=== PATIENT | male | born 1950 | race Caucasian/White ===

== ENCOUNTER 2016-08-05 17:19 | Inpatient (IN) | payer OTHER ==
[2016-08-05 17:55] VITALS: BMI 30.9
[2016-08-05] MEDS ORDERED: VANCOMYCIN 1,000 MG in DEXTROSE 5%-WATER - 250 ML IVPB ONE (18:33)
[2016-08-05] MEDS ORDERED: PIPERACILLIN/TAZOB 3.375 GM/50 ML PRE-DOCKED IVPB ONE (18:33)
[2016-08-05 19:02] LABS: BASOPHIL 0.5 % (0-2.0); EOSINOPHIL 0.7 % (0-4.5); MCH 31.9 pg (25.7-33.7); MCHC 33.8 g/dl (32.0-35.9); MEAN CELL VOLUME 94.6 fl (80-96); MEAN PLT VOLUME 9.5 fl (7.5-11.1); NEUTROPHILS 82.9 % (42.8-82.8); PLATELET COUNT 363 K/MM3 (134-434); RDW 13.4 % (11.9-15.9); WHITE BLOOD COUNT 18.9 K/mm3 (4.0-10.0)
[2016-08-05 19:26] LABS: ALBUMIN 2.9 g/dl (3.4-5.0); BILIRUBIN,TOTAL 0.8 mg/dL (0.2-1.0); CALCIUM 8.7 mg/dL (8.5-10.1); COCKROFT - GAULT 79.31; CREATININE 1.4 mg/dL (0.7-1.3)
[2016-08-05 19:29] LABS: INR 1.14 (0.82-1.09); PROTHROMBIN TIME (PATIENT) 12.6 SEC (9.98-11.88)
[2016-08-05 19:32] LABS: ACTIVATED PTT 30.4 SECONDS (26.9-34.4)
--- NOTE | 2016-08-05 19:33 | PDOC ---
History of Present Illness - General History Source: Patient Exam Limitations: No Limitations <Paul Garcia - Last Filed: 08/05/16 20:14> - General History Source: Patient, Spouse Exam Limitations: No Limitations - History of Present Illness Initial Comments: 08/05/16 20:27 The patient is a 65 year old male, with a significant past medical history of hypertension, hyperlipidemia, diabetes, coronary artery disease s/p stents and glaucoma, who presents to the emergency department sent in by Dr. Randy Faith with a worsening infection of the right great toe for the past week. The patient reports that one week ago, he noticed a small blister and an area of surrounding erythema to the right great toe which has spread to the dorsum of the right foot in the past 2 days. The patient made an appointment and was seen by his structural steel worker who took an x-ray of his right foot and referred him to Dr. Faith, who then referred him to the ED for evaluation and likely admission for IV antibiotics. The patient denies fever or chills. The patients is at the bedside. Allergies: None reported. Past Surgical History: Appendectomy, Stents. Social History: Non smoker. Denies alcohol or drug use. <Matilda Irene - Last Filed: 08/05/16 21:07> - General Chief Complaint: Wound Infection Stated Complaint: INFECTED WOUND Time Seen by Provider: 08/05/16 18:09 Past History - Past Medical History Cardiac Disorders: Yes Diabetes: Yes HTN: Yes Hypercholesterolemia: Yes Other medical history: glaucome - Surgical History Appendectomy: Yes - Psycho/Social/Smoking Cessation Hx Suicidal Ideation: No Smoking History: Never smoked <Paul Garcia - Last Filed: 08/05/16 20:14> <Matilda Irene - Last Filed: 08/05/16 21:07> - Past Medical History Allergies/Adverse Reactions: Allergies Allergy/AdvReac Type Severity Reaction Status Date / Time No Known Allergies Allergy Verified 08/05/16 17:53 Review of Systems - Review of Systems Able to Perform ROS?: Yes Comments:: 08/05/16 20:06 GENERAL/CONSTITUTIONAL: No fever or chills. No weakness. HEAD, EYES, EARS, NOSE AND THROAT: No change in vision. No ear pain or discharge. No sore throat. CARDIOVASCULAR: No chest pain or shortness of breath. RESPIRATORY: No cough, wheezing, or hemoptysis. GASTROINTESTINAL: No nausea, vomiting, diarrhea or constipation. GENITOURINARY: No dysuria, frequency, or change in urination. MUSCULOSKELETAL: No joint or muscle swelling or pain. No neck or back pain. SKIN: +Wound to the right great toe. NEUROLOGIC: No headache, vertigo, loss of consciousness, or change in strength/ sensation. ENDOCRINE: No increased thirst. No abnormal weight change. HEMATOLOGIC/LYMPHATIC: No anemia, easy bleeding, or history of blood clots. ALLERGIC/IMMUNOLOGIC: No hives or skin allergy. <Matilda Irene - Last Filed: 08/05/16 21:07> *Physical Exam - Vital Signs Last Vital Signs Temp Pulse Resp BP Pulse Ox 98.2 F 101 H 19 130/81 97 08/05/16 17:53 08/05/16 17:53 08/05/16 17:53 08/05/16 17:53 08/05/16 17:53 <Paul Garcia - Last Filed: 08/05/16 20:14> - Vital Signs Last Vital Signs Temp Pulse Resp BP Pulse Ox 98.2 F 101 H 19 130/81 97 08/05/16 17:53 08/05/16 17:53 08/05/16 17:53 08/05/16 17:53 08/05/16 17:53 - Physical Exam Comments: 08/05/16 20:17 GENERAL: Awake, alert, and fully oriented, in no acute distress. HEAD: No signs of trauma. EYES: PERRLA, EOMI, sclera anicteric, conjunctiva clear. ENT: Auricles normal inspection, hearing grossly normal, nares patent, oropharynx clear without exudates. Moist mucosa. NECK: Normal ROM, supple, no lymphadenopathy, JVD, or masses. LUNGS: Breath sounds equal, clear to auscultation bilaterally. No wheezes, and no crackles. HEART: Regular rate and rhythm, normal S1 and S2, no murmurs, rubs or gallops. ABDOMEN: Soft, nontender, normoactive bowel sounds. No guarding, no rebound. No masses. EXTREMITIES: Normal range of motion, no edema. No clubbing or cyanosis. No cords , erythema, or tenderness. NEUROLOGICAL: Cranial nerves II through XII intact. Normal speech, normal gait. SKIN: Palpable 2+ DP pulse. Great toe of the right foot is erythematous with a 2 x 2 cm ulcer with drainage. Erythema extends to assisted to the dorsum of the right foot. <Matilda Irene - Last Filed: 08/05/16 21:07> Heart Score/ECG Review #1 ECG reviewed & interpreted by me at: 19:00 08/05/16 19:36 NSR 92, TWI III, T wave flat avF, nostd/bucky, QTC 437 msec <Paul Garcia - Last Filed: 08/05/16 20:14> ED Treatment Course - LABORATORY CBC & Chemistry Diagram: 08/05/16 18:39 08/05/16 18:39 - ADDITIONAL ORDERS Additional order review: Laboratory Results 08/05/16 08/05/16 18:39 18:39 Sodium 134 L Potassium 3.6 Chloride 96 L Carbon Dioxide 24 Anion Gap 14 BUN 16 Creatinine 1.4 H Creat Clearance w eGFR 50.86 Random Glucose 300 H Lactic Acid 1.569 Calcium 8.7 Total Bilirubin 0.8 AST 30 ALT 24 Alkaline Phosphatase 115 Total Protein 7.0 Albumin 2.9 L 08/05/16 18:39 RBC 3.90 L MCV 94.6 MCHC 33.8 RDW 13.4 MPV 9.5 Neutrophils % 82.9 H Lymphocytes % 7.2 L Monocytes % 8.7 Eosinophils % 0.7 Basophils % 0.5 - RADIOLOGY Radiology Studies Ordered: Category Date Time Status CHEST X-RAY PORTABLE* [RAD] Stat Radiology 08/05/16 18:32 Ordered <Paul Garcia - Last Filed: 08/05/16 20:14> - LABORATORY CBC & Chemistry Diagram: 08/05/16 18:39 08/05/16 18:39 - ADDITIONAL ORDERS Additional order review: Laboratory Results 08/05/16 08/05/16 18:39 18:39 Sodium 134 L Potassium 3.6 Chloride 96 L Carbon Dioxide 24 Anion Gap 14 BUN 16 Creatinine 1.4 H Creat Clearance w eGFR 50.86 Random Glucose 300 H Lactic Acid 1.569 Calcium 8.7 Total Bilirubin 0.8 AST 30 ALT 24 Alkaline Phosphatase 115 Total Protein 7.0 Albumin 2.9 L 08/05/16 18:39 RBC 3.90 L MCV 94.6 MCHC 33.8 RDW 13.4 MPV 9.5 Neutrophils % 82.9 H Lymphocytes % 7.2 L Monocytes % 8.7 Eosinophils % 0.7 Basophils % 0.5 - Medications Given in the ED: ED Medications Discontinued Medications Generic Name Dose Route Start Last Admin Trade Name Freq PRN Reason Stop Dose Admin Piperacillin Sod/Tazobactam Sod 3.375 gm 08/05/16 18:33 08/05/16 19:43 Zosyn 3.375gm Ivpb (Pre-Docked) IVPB 08/05/16 18:34 3.375 gm ONCE ONE Administration Protocol <Matilda Irene - Last Filed: 08/05/16 21:07> Medical Decision Making - Medical Decision Making 08/05/16 19:30 A portion of this note was documented by scribe services under my direction. I have reviewed the details of the note, within reason, and agree with the documentation with the following case summary and management plan written by me. Patient treated in the ED. Nursing notes are reviewed and incorporated into the medical decision-making. Vital signs reviewed. Peripheral IV access obtained by the nurse, laboratory studies are drawn and sent, reviewed and interpreted by myself. Vital Signs Temp Pulse Resp BP Pulse Ox 98.2 F 101 H 19 130/81 97 08/05/16 17:53 08/05/16 17:53 08/05/16 17:53 08/05/16 17:53 08/05/16 17:53 65-year-old male with past medical history of hypertension, diabetes, hyperlipidemia, coronary disease status post stents, glaucoma sent in by vascular surgeon Dr. Faith for first toe right infection. Patient reported about a week ago, she noticed a small erythema along the second right digit that extended to her first toe. Reports that the symptoms worsened last 2 days and now extending to the dorsum the right foot. Denies fevers. He saw his structural steel worker referred him to the vascular surgeon. After seeing the vascular surgeon, patient was sent to the ER for further evaluation. He reports that he had an x-ray performed at the structural steel worker's office of his right toe. We'll need to rule out osteomyelitits. Vancomycin and Zosyn initiated. Patient at the very minimum has cellulitis. We'll admit the patient to hospital for further management. 08/05/16 20:14 CBC, BMP 08/05/16 18:39 08/05/16 18:39 CMP Sodium 134 mmol/L (136-145) L 08/05/16 18:39 Potassium 3.6 mmol/L (3.5-5.1) 08/05/16 18:39 Chloride 96 mmol/L (98-107) L 08/05/16 18:39 Carbon Dioxide 24 mmol/L (21-32) 08/05/16 18:39 Anion Gap 14 (8-16) 08/05/16 18:39 BUN 16 mg/dL (7-18) 08/05/16 18:39 Creatinine 1.4 mg/dL (0.7-1.3) H 08/05/16 18:39 Creat Clearance w eGFR 50.86 (>60) 08/05/16 18:39 Random Glucose 300 mg/dL (74-106) H 08/05/16 18:39 Lactic Acid 1.569 mmol/L (0.4-2.0) 08/05/16 18:39 Calcium 8.7 mg/dL (8.5-10.1) 08/05/16 18:39 Total Bilirubin 0.8 mg/dL (0.2-1.0) 08/05/16 18:39 AST 30 U/L (15-37) 08/05/16 18:39 ALT 24 U/L (12-78) 08/05/16 18:39 Alkaline Phosphatase 115 U/L (45-117) 08/05/16 18:39 C-Reactive Protein 26.6 MG/DL (0.00-0.3) H 08/05/16 18:39 Total Protein 7.0 g/dl (6.4-8.2) 08/05/16 18:39 Albumin 2.9 g/dl (3.4-5.0) L 08/05/16 18:39 Patient to be admitted to [facility]. Case discussed in detail with admitting physician including history, physical exam and ancillary studies. Admitting physician has assumed care for the patient, will follow all pending diagnostics and will complete the evaluation and treatment. <Paul Garcia - Last Filed: 08/05/16 20:14> - Medical Decision Making 08/05/16 20:30 EXAM: RAD/CHEST X-RAY PORTABLE Reviewed By: Dr. Marine Serna IMPRESSION: No acute cardiopulmonary disease is present. <Matilda Irene - Last Filed: 08/05/16 21:07> *DC/Admit/Observation/Transfer - Discharge Dispostion Admit: Yes <Paul Garcia - Last Filed: 08/05/16 20:14> - Attestations Scribe Attestion: 08/05/16 19:53 Documentation prepared by Matilda Irene, acting as medical charge entry specialist for Paul Garcia MD. <Matilda Irene - Last Filed: 08/05/16 21:07> Diagnosis at time of Disposition: Cellulitis Qualifiers: Site of cellulitis: extremity Site of cellulitis of extremity: lower extremity Laterality: right Qualified Code(s): L03.115 - Cellulitis of right lower limb
[2016-08-05] MEDS ORDERED: PIPERACILLIN/TAZOB 4.5 GM 100 ML IVPB ONE (19:34)
[2016-08-05] MEDS ORDERED: VANCOMYCIN 1 GRAM (PRE-DOCKED) 250 ML IVPB ONE (19:35)
[2016-08-05] MEDS ORDERED: ONDANSETRON 4 MG/2 ML VIAL IVPB PRN (19:35)
--- NOTE | 2016-08-05 19:38 | HP ---
[id number] HISTORY OF PRESENT ILLNESS: 65 year old male that presents to the ED sent in by vascular surgeon Dr. Faith for right first toe infection. Patient reported about 1 week ago, he noticed a blister along the second right digit that extended to his first toe. Reports that the symptoms worsened last 2 days and now extending to the dorsum the right foot. He reports foul smell from the wound on the right great toe as well as numbness, erythema and swelling. He denies fever or chills. ER course was notable for: (1) Vanco/Zosyn Recent Travel: none PAST MEDICAL HISTORY: hypertension, diabetes type 2 (diet controlled), hyperlipidemia, CAD s/p stent, glaucoma PAST SURGICAL HISTORY: Appendectomy, Stents, tonsillectomy, right ankle orif Social History: Smoking: none Alcohol: none Drugs: none Family History: non contributory Allergies No Known Allergies Allergy (Verified 08/05/16 17:53) HOME MEDICATIONS: REVIEW OF SYSTEMS CONSTITUTIONAL: Absent: fever, chills, diaphoresis, generalized weakness, malaise, loss of appetite, weight change HEENT: Absent: rhinorrhea, nasal congestion, throat pain, throat swelling, difficulty swallowing, mouth swelling, ear pain, eye pain, visual changes CARDIOVASCULAR: Absent: chest pain, syncope, palpitations, irregular heart rate, lightheadedness , peripheral edema RESPIRATORY: Absent: cough, shortness of breath, dyspnea with exertion, orthopnea, wheezing, stridor, hemoptysis GASTROINTESTINAL: Absent: abdominal pain, abdominal distension, nausea, vomiting, diarrhea, constipation, melena, hematochezia GENITOURINARY: Absent: dysuria, frequency, urgency, hesitancy, hematuria, flank pain, genital pain MUSCULOSKELETAL: Absent: myalgia, arthralgia, joint swelling, back pain, neck pain SKIN: Present: right great first toe wound Absent: rash, itching, pallor HEMATOLOGIC/IMMUNOLOGIC: Absent: easy bleeding, easy bruising, lymphadenopathy, frequent infections ENDOCRINE: Absent: unexplained weight gain, unexplained weight loss, heat intolerance, cold intolerance NEUROLOGIC: Absent: headache, focal weakness or paresthesias, dizziness, unsteady gait, seizure, mental status changes, bladder or bowel incontinence PSYCHIATRIC: Absent: anxiety, depression, suicidal or homicidal ideation, hallucinations. PHYSICAL EXAMINATION Vital Signs - 24 hr 08/05/16 17:53 Temperature 98.2 F Pulse Rate 101 H Respiratory 19 Rate Blood Pressure 130/81 O2 Sat by Pulse 97 Oximetry (%) GENERAL: Awake, alert, and fully oriented, in no acute distress. HEAD: Normal with no signs of trauma. EYES: Pupils equal, round and reactive to light, +right eye strabismus, sclera anicteric, conjunctiva clear. No lid lag. EARS, NOSE, THROAT: Ears normal, nares patent, oropharynx clear without exudates. Moist mucous membranes. NECK: Normal range of motion, supple without lymphadenopathy, JVD, or masses. LUNGS: Breath sounds equal, clear to auscultation bilaterally. No wheezes, and no crackles. No accessory muscle use. HEART: Regular rate and rhythm, normal S1 and S2 without murmur, rub or gallop. ABDOMEN: Soft, nontender, not distended, normoactive bowel sounds, no guarding, no rebound, no masses. No hepatomegaly or splenomegaly. MUSCULOSKELETAL: Normal range of motion at all joints. No bony deformities or tenderness. No CVA tenderness. UPPER EXTREMITIES: 2+ pulses, warm, well-perfused. No cyanosis. No clubbing. No peripheral edema. LOWER EXTREMITIES: +right forefoot warm, erythematous, foul smelling with wound on first toe with necrotic tissue and interdigit serous drainage between first and second toe. 2+ pulses, warm, well-perfused. +discrimination on posterior aspect of first toe and edema. No calf tenderness. NEUROLOGICAL: Cranial nerves II-XII intact. Normal speech. PSYCHIATRIC: Cooperative. Good eye contact. Appropriate mood and affect. SKIN: Warm, dry, normal turgor, normal capillary refill. Laboratory Results - last 24 hr 08/05/16 08/05/16 08/05/16 18:39 18:39 18:39 WBC 18.9 H RBC 3.90 L Hgb 12.5 Hct 36.9 MCV 94.6 MCHC 33.8 RDW 13.4 Plt Count 363 MPV 9.5 Neutrophils % 82.9 H Lymphocytes % 7.2 L Monocytes % 8.7 Eosinophils % 0.7 Basophils % 0.5 ESR INR 1.14 PTT (Actin FS) 30.4 Sodium 134 L Potassium 3.6 Chloride 96 L Carbon Dioxide 24 Anion Gap 14 BUN 16 Creatinine 1.4 H Creat Clearance w eGFR 50.86 Random Glucose 300 H Lactic Acid Calcium 8.7 Total Bilirubin 0.8 AST 30 ALT 24 Alkaline Phosphatase 115 C-Reactive Protein Total Protein 7.0 Albumin 2.9 L Blood Type Antibody Screen 08/05/16 08/05/16 08/05/16 18:39 18:39 18:39 WBC RBC Hgb Hct MCV MCHC RDW Plt Count MPV Neutrophils % Lymphocytes % Monocytes % Eosinophils % Basophils % ESR INR PTT (Actin FS) Sodium Potassium Chloride Carbon Dioxide Anion Gap BUN Creatinine Creat Clearance w eGFR Random Glucose Lactic Acid 1.569 Calcium Total Bilirubin AST ALT Alkaline Phosphatase C-Reactive Protein 26.6 H Total Protein Albumin Blood Type B POSITIVE Antibody Screen Negative 08/05/16 18:56 WBC RBC Hgb Hct MCV MCHC RDW Plt Count MPV Neutrophils % Lymphocytes % Monocytes % Eosinophils % Basophils % ESR 127 H INR PTT (Actin FS) Sodium Potassium Chloride Carbon Dioxide Anion Gap BUN Creatinine Creat Clearance w eGFR Random Glucose Lactic Acid Calcium Total Bilirubin AST ALT Alkaline Phosphatase C-Reactive Protein Total Protein Albumin Blood Type Antibody Screen ASSESSMENT/PLAN: 65 year old male being admitted for sepsis secondary to acute cellulitis r/o osteomyelitis. -Vanco/zosyn IV -MRI of the right foot -Podiatry consult in AM Diabetes -RISS -Hgb A1C BART vs. BART on CKD -IVF -Reevaluate BMP in AM DVT ppx -Heparin 5000 units subQ TID Documentation prepared by LUIS CARLOS Ramirez, acting as emergency medical services coordinator for Patti Rees MD, MD. <Patti Rees - Last Filed: 08/19/16 20:43> Visit type - Emergency Visit Emergency Visit: Yes ED Registration Date: 08/05/16 Care time: The patient presented to the Emergency Department on the above date and was hospitalized for further evaluation of their emergent condition. - New Patient This patient is new to me today: Yes Date on this admission: 08/19/16 - Critical Care Critical Care patient: No
[2016-08-05] MEDS ORDERED: PIPERACILLIN/TAZOB 3.375 GM 50 ML IVPB ONE (19:47)
[2016-08-05] MEDS: SODIUM CHLORIDE 1,000 ML IV SCH (19:53)
[2016-08-05 22:28] LABS: URINE APPEARANCE CLOUDY; URINE BILIRUBIN NEGATIVE (NEGATIVE); URINE BLOOD NEGATIVE (NEGATIVE); URINE COLOR DKYELLOW; URINE GLUCOSE (UA) 3+ (NEGATIVE); URINE KETONE TRACE (NEGATIVE); URINE LEUK ESTERASE NEGATIVE (NEGATIVE); URINE NITRITE NEGATIVE (NEGATIVE); URINE PROTEIN NEGATIVE (NEGATIVE); URINE UROBILINOGEN NEGATIVE E.U./dl (0.2-1.0)
[2016-08-05] MEDS ORDERED: HEMOQUE TEST 1 EACH EACH ONE (22:43)
[2016-08-06] MEDS ORDERED: HEPARIN NA (PORCINE) 5,000 UNITS/ML 1ML VIAL ONE (02:23)
[2016-08-06] MEDS: HEPARIN NA (PORCINE) 5,000 UNITS/ML 1ML VIAL SQ SCH ×3 (02:28→21:34)
[2016-08-06] MEDS ORDERED: INSULIN REGULAR HUMAN 100 UNITS/ML *VIAL IVPUSH ONE (02:57)
[2016-08-06] MEDS ORDERED: SODIUM CHLORIDE 0.9% 1000 ML INFUS.BAG IV ONE (02:58)
[2016-08-06] MEDS ORDERED: INSULIN REGULAR HUMAN 100 UNITS/ML *VIAL ONE (03:01)
[2016-08-06] MEDS: SODIUM CHLORIDE 1,000 ML IV SCH ×3 (04:26→17:26)
[2016-08-06] MEDS: INSULIN SLIDING SCALE (NOVOLOG) 1 VIAL SQ SCH ×4 (06:53→21:34)
[2016-08-06 08:33] LABS: MCH 31.8 pg (25.7-33.7); MCHC 33.3 g/dl (32.0-35.9); MEAN CELL VOLUME 95.7 fl (80-96); MEAN PLT VOLUME 9.1 fl (7.5-11.1); PLATELET COUNT 301 K/MM3 (134-434); RDW 13.3 % (11.9-15.9); WHITE BLOOD COUNT 14.8 K/mm3 (4.0-10.0)
[2016-08-06 09:09] LABS: ALBUMIN 2.5 g/dl (3.4-5.0); CALCIUM 8.4 mg/dL (8.5-10.1)
[2016-08-06 09:12] LABS: BILIRUBIN,TOTAL 0.7 mg/dL (0.2-1.0); COCKROFT - GAULT 79.2; CREATININE 1.4 mg/dL (0.7-1.3); TOT PROT 5.9 g/dl (6.4-8.2)
--- NOTE | 2016-08-06 15:40 | PN ---
Progress Note (short form) - Note Progress Note: states pain in his foot has improved, has occasional pain but not related to movement. states it started off as blister which he tried to keep clean with hydrogen peroixde but went to the doctor when he notice the infection spreading to the lateral edge of the toe. denies inserting any foreign object into the foot or trauma to the foot. denies CP, SOB,fever, chills, N/V/C/D Current Medications Generic Name Dose Route Start Last Admin Trade Name Freq PRN Reason Stop Dose Admin Heparin Sodium (Porcine) 5,000 unit 08/06/16 02:00 08/06/16 09:12 Heparin - SQ 5,000 unit Q8H-IV RONALDO Administration Sodium Chloride 1,000 mls @ 125 mls/hr 08/05/16 19:45 08/06/16 12:38 Normal Saline - IV 125 mls/hr ASDIR RONALDO Administration Insulin Aspart 1 vial 08/06/16 07:00 08/06/16 11:59 Novolog Vial Sliding Scale - SQ 6 units ACHS RONALDO Administration Protocol Ondansetron HCl 4 mg 08/05/16 19:35 Zofran Injection IVPB Q6H PRN NAUSEA Last Vital Signs Temp Pulse Resp BP Pulse Ox 98.6 F 87 18 136/79 95 08/06/16 12:31 08/06/16 12:31 08/06/16 12:31 08/06/16 12:31 08/06/16 09:00 General NAd CV S1 S2 + Lungs CTA B/L no wheezing/rales/rhonchi Abdomen soft NT/ND obese Extremities RLE erythema on dorsum to midfoot, medial aspect of 1st digit of R foot with probe to bone. lateral aspect pf 1st digit with blister draining pus. pedal pulse 1+ CBCD WBC 14.8 K/mm3 (4.0-10.0) H 08/06/16 07:30 RBC 3.44 M/mm3 (4.00-5.60) L 08/06/16 07:30 Hgb 11.0 GM/dL (11.7-16.9) L D 08/06/16 07:30 Hct 32.9 % (35.4-49) L 08/06/16 07:30 MCV 95.7 fl (80-96) 08/06/16 07:30 MCHC 33.3 g/dl (32.0-35.9) 08/06/16 07:30 RDW 13.3 % (11.9-15.9) 08/06/16 07:30 Plt Count 301 K/MM3 (134-434) 08/06/16 07:30 MPV 9.1 fl (7.5-11.1) 08/06/16 07:30 CMP Sodium 137 mmol/L (136-145) 08/06/16 07:30 Potassium 4.0 mmol/L (3.5-5.1) 08/06/16 07:30 Chloride 99 mmol/L (98-107) 08/06/16 07:30 Carbon Dioxide 28 mmol/L (21-32) 08/06/16 07:30 Anion Gap 10 (8-16) 08/06/16 07:30 BUN 21 mg/dL (7-18) H D 08/06/16 07:30 Creatinine 1.4 mg/dL (0.7-1.3) H 08/06/16 07:30 Creat Clearance w eGFR 50.86 (>60) 08/06/16 07:30 Calcium 8.4 mg/dL (8.5-10.1) L 08/06/16 07:30 Total Bilirubin 0.7 mg/dL (0.2-1.0) 08/06/16 07:30 AST 21 U/L (15-37) D 08/06/16 07:30 ALT 18 U/L (12-78) D 08/06/16 07:30 Alkaline Phosphatase 94 U/L (45-117) 08/06/16 07:30 Total Protein 5.9 g/dl (6.4-8.2) L 08/06/16 07:30 Albumin 2.5 g/dl (3.4-5.0) L 08/06/16 07:30 A/P 65yo m with PMH CAD s/p stent, DM, HTN and dyslipidemia presented to the ER and was admitted for further evaluation of their emergent condition 1. R toe diabetic ulcer- concern for OM. MRI foot pending. as per pt had XR in PMD office and was told there was bone involvement. ESR/CRP elevated. received Vanco/Zosyn in the ER. give vanco x1g now. will consult ID to continue vanco empirically (will need to be dosed to level, none obtained today) and will need to add GN coverage. podiatry consulted for possible amputation. pain control. hold asa/plavix for possible surgery 2. DM- uncontrolled. does not take medications at home. A1c 10.9. will start levemir 10 units tonight, ISS, BGM 3. BART- unknown baseline. obtain from PMD. IVF. hold acei. avoid nephrotoxic 4. CAD s/p stent- will re-start metoprolol at decreased rate, hold asa/plavix for pending surgery 5. dyslipidemia- cont statin 6. DVT ppx- hep sq Visit type - Emergency Visit Emergency Visit: Yes ED Registration Date: 08/05/16 Care time: The patient presented to the Emergency Department on the above date and was hospitalized for further evaluation of their emergent condition. - New Patient This patient is new to me today: Yes Date on this admission: 08/06/16 - Critical Care Critical Care patient: No - Discharge Referral Referred to [facility] Med P.C.: No
--- NOTE | 2016-08-06 15:52 | PN ---
Progress Note (short form) - Note Progress Note: Vascular Surgery Pt seen and examined. Dressing changed. Going down for MRI Right great toe with cellulitis. Started as blister two weeks ago. Now with ulcer with draining pus. Palpable DP and PT pulses. Will need drainage, possible amputation as per podiatry. Cleared from vascular stand point. Randy Faith DO
--- NOTE | 2016-08-06 16:20 | EKG ---
Test Reason : Blood Pressure : / mmHG Vent. Rate : 092 BPM Atrial Rate : 092 BPM P-R Int : 000 ms QRS Dur : 088 ms QT Int : 354 ms P-R-T Axes : 000 007 017 degrees QTc Int : 437 ms SINUS RHYTHM WITH MARKED SINUS ARRHYTHMIA OTHERWISE NORMAL ECG WHEN COMPARED WITH ECG OF 26-JAN-2010 10:30, NO SIGNIFICANT CHANGE WAS FOUND Confirmed by VINAYAK JOHNSON MD ([id number]) on 08/06/2016 4:20:13 PM Referred By: Confirmed By:VINAYAK JOHNSON MD
[2016-08-06] MEDS: METOPROLOL TARTRATE 50 MG TABLET (FP) PO SCH (21:34)
[2016-08-06] MEDS: ATORVASTATIN CA 10 MG TABLET (FP) PO SCH (21:34)
[2016-08-06] MEDS ORDERED: INSULIN DETEMIR 100 UNITS/ML MDV SQ SCH (22:00)
[2016-08-07] MEDS: SODIUM CHLORIDE 1,000 ML IV SCH ×2 (00:21→10:45)
[2016-08-07] MEDS: HEPARIN NA (PORCINE) 5,000 UNITS/ML 1ML VIAL SQ SCH ×3 (05:07→22:36)
[2016-08-07] MEDS: INSULIN SLIDING SCALE (NOVOLOG) 1 VIAL SQ SCH ×4 (06:21→22:41)
[2016-08-07 08:51] LABS: BASOPHIL 0.5 % (0-2.0); MCH 32.5 pg (25.7-33.7); MCHC 33.8 g/dl (32.0-35.9); MEAN CELL VOLUME 96.1 fl (80-96); MEAN PLT VOLUME 9.3 fl (7.5-11.1); NEUTROPHILS 80.9 % (42.8-82.8); PLATELET COUNT 338 K/MM3 (134-434); RDW 13.2 % (11.9-15.9); WHITE BLOOD COUNT 11.4 K/mm3 (4.0-10.0)
[2016-08-07] MEDS: METOPROLOL TARTRATE 50 MG TABLET (FP) PO SCH ×3 (08:52→22:36)
[2016-08-07 09:07] LABS: COCKROFT - GAULT 100.81; CREATININE 1.1 mg/dL (0.7-1.3)
[2016-08-07] MEDS ORDERED: PIPERACILLIN/TAZOB 3.375 GM 3.375 GM in DEXTROSE 5%-WATER - 50 ML IVPB SCH (11:00)
--- NOTE | 2016-08-07 11:06 | CONSULT ---
Consult - text type - Consultation Consultation Note: Podiatry Consultation: 65 year old poorly controlled DM M presents to ED with redness/swelling/foul smelling wound to R great toe since 08/05. Patient states that the it started as a blister that he was tending to on his own. The blister erupted a few days ago and noticed foul smell so he presented to a private manager stylist. Xrays were taken in his office and he recommended presenting to ED. He denies F/V/N/C/SOB/ CP at home. Patient never received xray in ED, was sent upstairs for admission and received MRI prior to my consultation. Patient was seen by vascular sx and was cleared from vascular standpoint, recommended my consultation. PMHx: poorly controlled IDDM, HTN, CAD s/p stent, HLP Meds: noted in chart ALL: NKMA PSHx: CAD s/p stent KIRAN: R foot: pedal pulses palpable, TG warm-warmer R foot, CFT delayed R great toe. There is a large purulent, malodorous wound medial aspect of great toe. There is a secondary wound lateral aspect of IPJ of hallux. There is purulent drainage from secondary wound. There is surrounding erythema to the level of the 1st MTPJ. There is fluctuance noted. There is no soft tissue crepitus. There is moderate tenderness to palpation. WBC: 11.4, decreasing Blood Cx: negative x 24 hrs R foot XR: never performed R foot MRI: acute osteomyelitis proximal and distal phalanges Imp: 65 year old DM M with R foot DFI and osteomyelitis 1. IV abx! 2. Bedside incision and drainage performed to decompress locally using #11 blade scalpel. Patient tolerated the procedure well, purulent drainage expressed from wound bed. 3. Clinically has acute localized infection to the R great toe. Will need debridement/lavage with great toe amputation tomorrow. NPO at midnight. 4. Will monitor improvement in infection post-surgically. Will follow closely. 5. Thanks for the courtesy of the consult. Brennan Thrasher DPM
[2016-08-07] MEDS ORDERED: PIPERACILLIN/TAZOB 3.375 GM 50 ML IVPB SCH (11:30)
[2016-08-07] MEDS: PIPERACILLIN/TAZOB 3.375 GM 50 ML IVPB SCH ×2 (12:00→17:59)
--- NOTE | 2016-08-07 13:22 | PN ---
Progress Note (short form) - Note Progress Note: states pain in his foot has improved, has occasional pain but not related to movement. states it started off as blister which he tried to keep clean with hydrogen peroixde but went to the doctor when he notice the infection spreading to the lateral edge of the toe. denies inserting any foreign object into the foot or trauma to the foot. denies CP, SOB,fever, chills, N/V/C/D Current Medications Generic Name Dose Route Start Last Admin Trade Name Freq PRN Reason Stop Dose Admin Atorvastatin Calcium 10 mg 08/06/16 22:00 08/06/16 21:34 Lipitor - PO 10 mg HS RONALDO Administration Heparin Sodium (Porcine) 5,000 unit 08/06/16 22:00 08/07/16 05:07 Heparin - SQ Not Given TID RONALDO Sodium Chloride 1,000 mls @ 100 mls/hr 08/06/16 15:48 08/07/16 10:45 Normal Saline - IV 100 mls/hr ASDIR RONALDO Administration Piperacillin Sod/Tazobactam Sod 50 mls @ 100 mls/hr 08/07/16 11:45 08/07/16 12: 00 Zosyn 3.375gm Ivpb (Pre-Docked) IVPB 100 mls/hr Q8H-IV RONALDO Administration Protocol Insulin Aspart 1 vial 08/06/16 07:00 08/07/16 12:07 Novolog Vial Sliding Scale - SQ 2 units ACHS RONALDO Administration Protocol Insulin Detemir 10 units 08/06/16 22:00 Levemir Vial SQ HS RONALDO Metoprolol Tartrate 50 mg 08/06/16 22:00 08/07/16 09:25 Lopressor - PO 50 mg BID RONALDO Administration Ondansetron HCl 4 mg 08/05/16 19:35 Zofran Injection IVPB Q6H PRN NAUSEA Last Vital Signs Temp Pulse Resp BP Pulse Ox 98.8 F 96 H 18 145/81 96 08/07/16 09:00 08/07/16 09:00 08/07/16 09:00 08/07/16 09:00 08/07/16 09:00 General NAd CV S1 S2 + Lungs CTA B/L no wheezing/rales/rhonchi Abdomen soft NT/ND obese Extremities RLE erythema on dorsum to midfoot, medial aspect of 1st digit of R foot with probe to bone. lateral aspect pf 1st digit with blister draining pus. pedal pulse 1+ A/P 65yo m with PMH CAD s/p stent, DM, HTN and dyslipidemia presented to the ER and was admitted for further evaluation of their emergent condition 1. R toe diabetic ulcer- concern for OM. MRI foot pending. as per pt had XR in PMD office and was told there was bone involvement. ESR/CRP elevated. received Vanco/Zosyn in the ER. give vanco x1g now. will consult ID to continue vanco empirically (will need to be dosed to level, none obtained today) and will need to add GN coverage. podiatry consulted for possible amputation. pain control. hold asa/plavix for possible surgery 2. DM- uncontrolled. does not take medications at home. A1c 10.9. will start levemir 10 units tonight, ISS, BGM 3. BART- unknown baseline. obtain from PMD. IVF. hold acei. avoid nephrotoxic 4. CAD s/p stent- will re-start metoprolol at decreased rate, hold asa/plavix for pending surgery 5. dyslipidemia- cont statin 6. DVT ppx- hep sq
--- NOTE | 2016-08-07 13:52 | PN ---
Progress Note (short form) - Note Progress Note: states pain in his foot since procedure bedside by podiatry. denies CP, SOB, fever, chills, N/V/C/D Current Medications Generic Name Dose Route Start Last Admin Trade Name Freq PRN Reason Stop Dose Admin Atorvastatin Calcium 10 mg 08/06/16 22:00 08/06/16 21:34 Lipitor - PO 10 mg HS RONALDO Administration Heparin Sodium (Porcine) 5,000 unit 08/06/16 22:00 08/07/16 13:25 Heparin - SQ 5,000 unit TID RONALDO Administration Piperacillin Sod/Tazobactam Sod 50 mls @ 100 mls/hr 08/07/16 11:45 08/07/16 12: 00 Zosyn 3.375gm Ivpb (Pre-Docked) IVPB 100 mls/hr Q8H-IV RONALDO Administration Protocol Insulin Aspart 1 vial 08/06/16 07:00 08/07/16 12:07 Novolog Vial Sliding Scale - SQ 2 units ACHS RONALDO Administration Protocol Insulin Detemir 10 units 08/06/16 22:00 Levemir Vial SQ HS RONALDO Metoprolol Tartrate 50 mg 08/06/16 22:00 08/07/16 09:25 Lopressor - PO 50 mg BID RONALDO Administration Ondansetron HCl 4 mg 08/05/16 19:35 Zofran Injection IVPB Q6H PRN NAUSEA Last Vital Signs Temp Pulse Resp BP Pulse Ox 98.8 F 96 H 18 145/81 96 08/07/16 09:00 08/07/16 09:00 08/07/16 09:00 08/07/16 09:00 08/07/16 09:00 General NAd CV S1 S2 + Lungs CTA B/L no wheezing/rales/rhonchi Abdomen soft NT/ND obese Extremities R foot in dressing c/d/i CBCD WBC 11.4 K/mm3 (4.0-10.0) H 08/07/16 08:00 RBC 3.36 M/mm3 (4.00-5.60) L 08/07/16 08:00 Hgb 10.9 GM/dL (11.7-16.9) L 08/07/16 08:00 Hct 32.3 % (35.4-49) L 08/07/16 08:00 MCV 96.1 fl (80-96) H 08/07/16 08:00 MCHC 33.8 g/dl (32.0-35.9) 08/07/16 08:00 RDW 13.2 % (11.9-15.9) 08/07/16 08:00 Plt Count 338 K/MM3 (134-434) 08/07/16 08:00 MPV 9.3 fl (7.5-11.1) 08/07/16 08:00 CMP Sodium 142 mmol/L (136-145) 08/07/16 08:00 Potassium 4.1 mmol/L (3.5-5.1) 08/07/16 08:00 Chloride 107 mmol/L (98-107) 08/07/16 08:00 Carbon Dioxide 26 mmol/L (21-32) 08/07/16 08:00 Anion Gap 9 (8-16) 08/07/16 08:00 BUN 15 mg/dL (7-18) D 08/07/16 08:00 Creatinine 1.1 mg/dL (0.7-1.3) D 08/07/16 08:00 Creat Clearance w eGFR 50.86 (>60) 08/06/16 07:30 Calcium 8.0 mg/dL (8.5-10.1) L 08/07/16 08:00 Total Bilirubin 0.7 mg/dL (0.2-1.0) 08/06/16 07:30 AST 21 U/L (15-37) D 08/06/16 07:30 ALT 18 U/L (12-78) D 08/06/16 07:30 Alkaline Phosphatase 94 U/L (45-117) 08/06/16 07:30 Total Protein 5.9 g/dl (6.4-8.2) L 08/06/16 07:30 Albumin 2.5 g/dl (3.4-5.0) L 08/06/16 07:30 Microbiology 08/05/16 21:50 Urine - Urine Clean Catch Urine Culture - Final NO GROWTH OBTAINED 08/05/16 18:39 Blood - Peripheral Venous Blood Culture - Preliminary NO GROWTH OBTAINED AFTER 24 HOURS, INCUBATION TO CONTINUE FOR 4 DAYS. A/P 65yo m with PMH CAD s/p stent, DM, HTN and dyslipidemia presented to the ER and was admitted for further evaluation of their emergent condition 1. R toe diabetic ulcer-MRI confirmed OM of prox/distal 1st digit. abscess drained bedside. NPO tonight for amputation in the AM. leukocytosis trending down. started on Zosyn by ID, may require MRSA coverage awaiting official consult by ID.pain control. hold asa/plavix for surgery 2. DM- A1c 10.9. improved. did not recieve long acting yesterday as was anticipated for surgery. cont iss, will start long acting tomorrow. minimal coverage received past 24H. ISS, BGM. diabetic teaching 3. BART- unknown baseline. improved. d/c IVF. avoid nephrotoxic 4. CAD s/p stent- re-start lisinopril. cont metoprolol. hold asa/plavix for pending surgery 5. dyslipidemia- cont statin 6. DVT ppx- hep sq. hold in AM for surgery Visit type - Emergency Visit Emergency Visit: Yes ED Registration Date: 08/05/16 Care time: The patient presented to the Emergency Department on the above date and was hospitalized for further evaluation of their emergent condition. - New Patient This patient is new to me today: No - Critical Care Critical Care patient: No - Discharge Referral Referred to [facility] No
--- NOTE | 2016-08-07 14:28 | PN ---
Progress Note (short form) - Note Progress Note: ID Consult dictated Diabetic R foot infection Osteomyelitis R great toe Cellulitis R foot Leukocytosis,possible sepsis secondary to foot source Surgical debridement Pending c/s empiric coverage zosyn/ vancomycin
--- NOTE | 2016-08-07 15:06 | CONS ---
DATE OF CONSULTATION: DATE OF DICTATION: 08/07/2016 A 65-year-old diabetic male evaluated for diabetic foot infection. He had presented with a 1-week history of increasing right great toe swelling, erythema and pain. He reports it initially started as a blister, became progressively more swollen and erythematous. He was sent to the emergency department by Dr. Faith after he was noted to have worsening right great toe infection. He underwent an MRI, which showed osteomyelitis of the 1st toe with no abscess or fluid collection noted. He was empirically treated with Zosyn and vancomycin. Patient complains of pain on manipulation of the foot. He denies any associated fever or chills. Past medical history positive for diabetes mellitus, hypertension, hyperlipidemia, coronary artery disease. PAST SURGICAL HISTORY: Status post coronary artery stent and appendectomy. No known allergies. Medications at the present time include vancomycin, Zosyn, heparin, Lipitor, metoprolol, insulin, lisinopril. SOCIAL HISTORY: He lives at home with his , nonsmoker, occasional EtOH. SYSTEMS REVIEW: Neurologic: No loss of consciousness, seizure activity, focal weakness. Cardiac: Negative chest pain or palpitations. Respiratory: Negative cough or sputum production. Gastrointestinal: Negative vomiting or diarrhea. Genitourinary: Negative for urinary tract infection. LABORATORY DATA: White count on admission 18.9, presently 11.4, hematocrit 32.3, platelet count 338. BUN 15, creatinine 1.1, ESR 127, C-reactive protein 26. Chest x-ray negative. Blood and urine cultures are pending. PHYSICAL EXAMINATION: General: He is awake and alert, he is not acutely toxic appearing. Vital Signs: Temperature 98.8. Blood pressure 145/81. Pulse 102, regular. Respirations 18 per minute. Eyes: Sclerae anicteric. Heart Sounds: S1, S2. Lungs: Clear. Abdomen: Soft. No tenderness elicited. No mass, rebound or rigidity. Extremities: Examination of the right foot, the right great toe is swollen. There is a necrotic ulceration present on the medial aspect of the right great toe with malodorous drainage, erythema, and extends to the dorsum of the foot and to base of the toes. No crepitus or fluctuance. No lymphangitic streaking. IMPRESSION: 1. Diabetic foot infection. 2. Osteomyelitis of the right great toe. 3. Cellulitis of the right foot. 4. Leukocytosis, possible sepsis secondary to infected diabetic foot. Need surgical debridement pending cultures. Empiric antibiotic coverage with vancomycin and Zosyn. Local wound care. Case discussed with patient and his present at time of examination. Thank you for the kind referral. KT LUGO M.D. [id number]
[2016-08-07] MEDS: VANCOMYCIN 1 GRAM (PRE-DOCKED) 250 ML IVPB SCH (16:21)
[2016-08-07] MEDS: LISINOPRIL 20 MG TABLET (FP) PO SCH (16:21)
[2016-08-07] MEDS: ATORVASTATIN CA 10 MG TABLET (FP) PO SCH (22:36)
[2016-08-08] MEDS: PIPERACILLIN/TAZOB 3.375 GM 50 ML IVPB SCH ×3 (02:14→18:32)
[2016-08-08] MEDS: VANCOMYCIN 1 GRAM (PRE-DOCKED) 250 ML IVPB SCH ×2 (03:16→17:46)
[2016-08-08] MEDS: HEPARIN NA (PORCINE) 5,000 UNITS/ML 1ML VIAL SQ SCH ×3 (06:46→22:35)
[2016-08-08] MEDS: INSULIN SLIDING SCALE (NOVOLOG) 1 VIAL SQ SCH ×4 (06:47→22:56)
[2016-08-08 08:43] LABS: BASOPHIL 1.2 % (0-2.0); MCH 32.3 pg (25.7-33.7); MCHC 33.6 g/dl (32.0-35.9); MEAN CELL VOLUME 96.2 fl (80-96); MEAN PLT VOLUME 9.3 fl (7.5-11.1); NEUTROPHILS 70.7 % (42.8-82.8); PLATELET COUNT 338 K/MM3 (134-434); RDW 13.4 % (11.9-15.9); WHITE BLOOD COUNT 9.3 K/mm3 (4.0-10.0)
[2016-08-08] MEDS: METOPROLOL TARTRATE 50 MG TABLET (FP) PO SCH ×2 (09:04→22:35)
[2016-08-08] MEDS: LISINOPRIL 20 MG TABLET (FP) PO SCH (09:04)
[2016-08-08 09:09] LABS: CALCIUM 8.3 mg/dL (8.5-10.1); COCKROFT - GAULT 92.41; CREATININE 1.2 mg/dL (0.7-1.3)
--- NOTE | 2016-08-08 11:10 | PN ---
Teaching Attending Note Name of Resident: Toribio Lorenz ATTENDING PHYSICIAN STATEMENT I saw and evaluated the patient. I reviewed the resident's note and discussed the case with the resident. I agree with the resident's findings and plan as documented. SUBJECTIVE:continues to have pain in his foot but improved on pain medications. denies CP, SOB,fever,chills OBJECTIVE: Last Vital Signs Temp Pulse Resp BP Pulse Ox 98.4 F 98 H 20 134/66 96 08/08/16 04:00 08/08/16 04:00 08/08/16 04:00 08/08/16 04:00 08/07/16 21:00 General NAD Extremities R foot in dressing c/d/i ASSESSMENT AND PLAN: 65yo m with PMH CAD s/p stent, DM, HTN and dyslipidemia presented to the ER and was admitted for further evaluation of their emergent condition 1. R toe diabetic ulcer-MRI confirmed OM of prox/distal 1st digit. abscess drained bedside. NPO for amputation today. on vanco/zosyn day 2. f/u bone cx. podiatry/vascular/ID on board. pain control. hold asa/plavix for surgery 2. DM- A1c 10.9. improved. will start levemir 5 units QHS. cont iss, minimal coverage received past 24H. ISS, BGM. diabetic teaching 3. BART- unknown baseline. improved. avoid nephrotoxic 4. CAD s/p stent- no signs of ACS. cont metoprolol/lisinoptil. hold asa/plavix for pending surgery 5. dyslipidemia- cont statin 6. DVT ppx- hep sq.on hold for pending surgery will re-start tomorrow
--- NOTE | 2016-08-08 12:53 | PN ---
Progress Note (short form) - Note Progress Note: Podiatry Pre-Op Note: Risks, benefits, alternatives to sx discussed at length with the patient at bedside. Patient is in agreement and informed consent obtained. Plan for R great toe amputation, debridement and lavage. Brennan Thrasher DPM
[2016-08-08] MEDS ORDERED: LIDOCAINE HCL 1%, 10 MG/ML (20ML VIAL) ONE (13:34)
[2016-08-08] MEDS ORDERED: MIDAZOLAM HCL 2 MG/2 ML SINGLE DOSE VIAL ONE (13:42)
[2016-08-08] MEDS ORDERED: PROPOFOL 20 ML ONE ×4 (13:43→14:40)
--- NOTE | 2016-08-08 13:51 | PN ---
Physical Exam: SUBJECTIVE: Patient seen and examined pt is awake, alert and fully orinted No s.s of acute distress. [facility] no fever or chills no n/v occasional shooting pain in right foot OBJECTIVE: Vital Signs Period Temp Pulse Resp BP Sys/Owusu Pulse Ox Last 24 Hr 98.2 F-99.4 F 73-98 20-20 120-147/52-79 96 GENERAL: The patient is awake, alert, and fully oriented, in no acute distress. HEAD: Normal with no signs of trauma. NECK: Trachea midline, full range of motion, supple. LUNGS: Breath sounds equal, clear to auscultation bilaterally, no wheezes, no crackles, no accessory muscle use. HEART: Regular rate and rhythm, S1, S2 without murmur, rub or gallop. ABDOMEN: Soft, nontender, nondistended, normoactive bowel sounds, no guarding, no rebound, no hepatosplenomegaly, no masses. EXTREMITIES: 2+ pulses, warm, well-perfused, no edema. NEUROLOGICAL: . Normal speech, gait not observed. PSYCH: Normal mood, normal affect. SKIN: Warm, dry, normal turgor, no rashes or lesions noted. right great toe, red , tender, swollen with medial and plantar ulcer, foul smeelign with mild/ moderate purulent discharge Laboratory Results - last 24 hr 08/06/16 08/07/16 08/07/16 02:24 16:28 22:38 WBC RBC Hgb Hct MCV MCHC RDW Plt Count MPV Neutrophils % Lymphocytes % Monocytes % Eosinophils % Basophils % Sodium Potassium Chloride Carbon Dioxide Anion Gap BUN Creatinine POC Glucometer > 400 195 213 Random Glucose Calcium 08/08/16 08/08/16 08/08/16 06:51 07:10 07:10 WBC 9.3 RBC 3.51 L Hgb 11.3 L Hct 33.8 L MCV 96.2 H MCHC 33.6 RDW 13.4 Plt Count 338 MPV 9.3 Neutrophils % 70.7 Lymphocytes % 15.8 D Monocytes % 8.3 Eosinophils % 4.0 Basophils % 1.2 Sodium 142 Potassium 4.1 Chloride 105 Carbon Dioxide 27 Anion Gap 10 BUN 12 Creatinine 1.2 POC Glucometer 221 Random Glucose 202 H Calcium 8.3 L 08/08/16 11:17 WBC RBC Hgb Hct MCV MCHC RDW Plt Count MPV Neutrophils % Lymphocytes % Monocytes % Eosinophils % Basophils % Sodium Potassium Chloride Carbon Dioxide Anion Gap BUN Creatinine POC Glucometer 206 Random Glucose Calcium Active Medications Generic Name Dose Route Start Last Admin Trade Name Kylie PRN Reason Stop Dose Admin Atorvastatin Calcium 10 mg 08/06/16 22:00 08/07/16 22:36 Lipitor - PO 10 mg HS RONALDO Administration Heparin Sodium (Porcine) 5,000 unit 08/06/16 22:00 08/08/16 06:46 Heparin - SQ Not Given TID RONALDO Piperacillin Sod/Tazobactam Sod 50 mls @ 100 mls/hr 08/07/16 11:45 08/08/16 09: 04 Zosyn 3.375gm Ivpb (Pre-Docked) IVPB 100 mls/hr Q8H-IV RONALDO Administration Protocol Vancomycin HCl 250 mls @ 200 mls/hr 08/07/16 16:15 08/08/16 03:16 Vancomycin (Pre-Docked) IVPB 200 mls/hr BID@0400,1600 RONALDO Administration Insulin Aspart 1 vial 08/06/16 07:00 08/08/16 11:21 Novolog Vial Sliding Scale - SQ Not Given ACHS RONALDO Protocol Lisinopril 20 mg 08/07/16 16:15 08/08/16 09:04 Prinivil PO 20 mg DAILY RONALDO Administration Metoprolol Tartrate 50 mg 08/06/16 22:00 08/08/16 09:04 Lopressor - PO 50 mg BID RONALDO Administration Ondansetron HCl 4 mg 08/05/16 19:35 Zofran Injection IVPB Q6H PRN NAUSEA CBC, BMP 08/08/16 07:10 08/08/16 07:10 ASSESSMENT/PLAN: 65 year old male with pmh Diabetes, CAD s/p stent (03/2016), HTN, HPLD present to the ED with complaint right great toe ulcer/infections/cellulitis. Pt was found to have osteomylitis on MRI of the right digit. Pt to undergoe amputation of right great toe by Dr Thrasher this afternoon 08/08/2016 Right Great toe diabetic ulcer/celulitis/osteomyelitis PT is on VAncomycin and zosyn by ID VAnco though at 1500 prior to next dose Pt to have amputation right [address] Thrasher Pending Bone/tissue culture for tailoring antibiotics coverage pain control NPO pending surgery Diabetes hbg A1c 10.9 BGM ACHS novolog coverage sliding scale will start levemir when No longer NPO and on a diet BART (resolved) Cr 1.2 BUN 12 CAD s/p stent Resume ASA and Plavix in am HPLD Continue statin FEN Fluid: normal saline at 75ml/h, may stop once diet resumed electrolyes: no abnormalities Nutrition: NPO, resume diabetic diet post op DVT prophylaxis: heparin sq, will resume in am if ok with surgery Disposition:pending amputation with tissue/bone culture for long antibiotic coverage Visit type - Emergency Visit Emergency Visit: Yes ED Registration Date: 08/05/16 Care time: The patient presented to the Emergency Department on the above date and was hospitalized for further evaluation of their emergent condition. - New Patient This patient is new to me today: Yes Date on this admission: 08/08/16 - Critical Care Critical Care patient: No - Discharge Referral Referred to [facility] No
[2016-08-08] MEDS ORDERED: LIDOCAINE HCL/PF 2% SDV 5ML VIAL ONE (13:54)
[2016-08-08] MEDS ORDERED: HYDROmorphone HCL/PF 1 MG/ML VIAL (FOR PYXIS CHARGING ONLY) ONE (14:46)
--- NOTE | 2016-08-08 15:07 | OP ---
Operative Note - Note: Operative Date: 08/08/16 Pre-Operative Diagnosis: R great toe severe DM foot infection with acute osteomyelitis Operation: R great toe amputation, 1st metatarsal head resection Findings: Severe DM foot infection R great toe with acute osteomyelitis Post-Operative Diagnosis: Same as Pre-op Surgeon: Doug Thrasher Anesthesia: Local, MAC Specimens Removed: R great toe; R 1st metatarsal head Estimated Blood Loss (mls): 25 Instrument used (Debridements only): #15 blade scalpel
[2016-08-08] MEDS ORDERED: HYDROmorphone HCL CARPU-JECT 1 MG/1 ML DISP.SYRIN IVPUSH PRN (15:22)
[2016-08-08] MEDS ORDERED: LACTATED RINGERS SOLUTION 1,000 ML IV SCH (15:30)
[2016-08-08] MEDS ORDERED: ONDANSETRON 4 MG/2 ML VIAL IVPB PRN (15:31)
[2016-08-08] MEDS: oxyCODONE HCL 5 MG TABLET PO PRN (18:30)
--- NOTE | 2016-08-08 21:16 | OP ---
DATE OF OPERATION: 08/08/2016 PREOPERATIVE DIAGNOSIS: Right great toe severe diabetic foot infection with osteomyelitis. POSTOPERATIVE DIAGNOSIS: Right great toe severe diabetic foot infection with osteomyelitis. PROCEDURE: Right great toe amputation with debridement and lavage. SURGEON: Doug Batista DPM MACHINE GUIDE BASE WINDER: None. HEMOSTASIS: None. ESTIMATED BLOOD LOSS: 25 mL. PATHOLOGY: Right great toe, right 1st metatarsal head. ANESTHESIA: Local with IV sedation. COMPLICATIONS: None. The patient was brought to the operating room and placed on the operating table in the supine position. I applied a pneumatic ankle tourniquet to the patient's right ankle; however, I elected to not use hemostasis during the procedure. Following the induction of IV sedation, local anesthesia was achieved utilizing 18 mL of 1% lidocaine plain. The right foot was then scrubbed, prepped and draped in the usual aseptic fashion. Attention was directed to the right great toe, where a medial probing ulcer with malodor and purulence was visualized and appreciated. I began by making a 3 cm linear longitudinal incision over the 1st metatarsal, continued my incision in a circumferential [id number] fashion. The incision was deepened to bone using sharp dissection. Care was taken to retract vital neurovascular structures. All bleeders were cauterized and ligated as necessary. Next the great toe was disarticulated at the level of the 1st metatarsophalangeal joint. The toe was removed in total and sent to Pathology for analysis. Next, a deep capsular incision was made overlying the 1st metatarsal head. The periosteum was reflected medially and laterally using a Correa elevator. A sagittal saw was used to remove the 1st metatarsal head, which was sent for a proximal bone culture and pathology. An appropriate soft tissue culture was also obtained. The surgical site was copiously irrigated with sterile saline mixed with bacitracin in a pulse lavage fashion. All liquefactive tissue was sharply and excisionally debrided utilizing a 15 blade scalpel. Once healthy viable tissue persisted, the surgical site was packed with 1/4-inch iodoform packing. The incision was coapted and maintained around the packing using 3-0 nylon in a simple interrupted suture fashion. A small opening in the central aspect of the surgical site was kept open to accommodate for drainage. Following the conclusion of the procedure, the incision was covered with Xeroform and a sterile compressive dressing was applied to the right foot consisting of sterile gauze, Thomas, Kerlix, and an Jomar wrap. The patient tolerated the procedure well without complication. He was transferred from the operating room to the recovery unit with vital signs stable and neuro-vasculature intact to the right foot. DOUG BATISTA DPM [id number] cc: [facility]
[2016-08-08] MEDS: ATORVASTATIN CA 10 MG TABLET (FP) PO SCH (22:35)
[2016-08-09] MEDS: PIPERACILLIN/TAZOB 3.375 GM 50 ML IVPB SCH ×3 (02:52→17:11)
[2016-08-09] MEDS: VANCOMYCIN 1 GRAM (PRE-DOCKED) 250 ML IVPB SCH ×2 (03:54→16:21)
[2016-08-09] MEDS: HEPARIN NA (PORCINE) 5,000 UNITS/ML 1ML VIAL SQ SCH ×3 (07:13→22:04)
[2016-08-09] MEDS: INSULIN SLIDING SCALE (NOVOLOG) 1 VIAL SQ SCH ×4 (07:18→22:05)
--- NOTE | 2016-08-09 07:28 | PN ---
Physical Exam: SUBJECTIVE: Patient seen and examined Pt has no s/s of acute distress no fever or chills No pain this morning OBJECTIVE: Vital Signs Period Temp Pulse Resp BP Sys/Owusu Pulse Ox Last 24 Hr 97.1 F-98.4 F 60-87 16-20 94-141/61-83 95-100 GENERAL: The patient is awake, alert, and fully oriented, in no acute distress. HEAD: Normal with no signs of trauma. NECK: Trachea midline, full range of motion, supple. LUNGS: Breath sounds equal, clear to auscultation bilaterally, no wheezes, no crackles, no accessory muscle use. HEART: Regular rate and rhythm, S1, S2 without murmur, rub or gallop. ABDOMEN: Soft, nontender, nondistended, normoactive bowel sounds, no guarding, no rebound, no hepatosplenomegaly, no masses. EXTREMITIES: 2+ pulses, warm, well-perfused, no edema. S/p amputation of right great toe. Right covered with gauze dressing, clean dry and intact, no swelling , redness and tendernness appreciated. NEUROLOGICAL: . Normal speech, gait not observed. PSYCH: Normal mood, normal affect. SKIN: Warm, dry, normal turgor, no rashes or lesions noted. Laboratory Results - last 24 hr 08/06/16 08/08/16 08/08/16 02:24 07:10 07:10 WBC 9.3 RBC 3.51 L Hgb 11.3 L Hct 33.8 L MCV 96.2 H MCHC 33.6 RDW 13.4 Plt Count 338 MPV 9.3 Neutrophils % 70.7 Lymphocytes % 15.8 D Monocytes % 8.3 Eosinophils % 4.0 Basophils % 1.2 Sodium 142 Potassium 4.1 Chloride 105 Carbon Dioxide 27 Anion Gap 10 BUN 12 Creatinine 1.2 POC Glucometer > 400 Random Glucose 202 H Calcium 8.3 L Vancomycin Trough 08/08/16 08/08/16 08/08/16 11:17 15:37 18:00 WBC RBC Hgb Hct MCV MCHC RDW Plt Count MPV Neutrophils % Lymphocytes % Monocytes % Eosinophils % Basophils % Sodium Potassium Chloride Carbon Dioxide Anion Gap BUN Creatinine POC Glucometer 206 161 Random Glucose Calcium Vancomycin Trough 7.929 08/08/16 22:42 WBC RBC Hgb Hct MCV MCHC RDW Plt Count MPV Neutrophils % Lymphocytes % Monocytes % Eosinophils % Basophils % Sodium Potassium Chloride Carbon Dioxide Anion Gap BUN Creatinine POC Glucometer 153 Random Glucose Calcium Vancomycin Trough Active Medications Generic Name Dose Route Start Last Admin Trade Name Freq PRN Reason Stop Dose Admin Atorvastatin Calcium 10 mg 08/08/16 22:00 08/08/16 22:35 Lipitor - PO 10 mg HS RONALDO Administration Fentanyl 25 mcg 08/08/16 15:22 Sublimaze Injection - IVPUSH 08/11/16 15:23 [id number] PRN PAIN Fentanyl 50 mcg 08/08/16 15:22 Sublimaze Injection - IVPUSH 08/11/16 15:23 [id number] PRN PAIN Heparin Sodium (Porcine) 5,000 unit 08/08/16 22:00 08/09/16 07:13 Heparin - SQ 5,000 unit TID RONALDO Administration Hydromorphone HCl 0.5 mg 08/08/16 15:22 Dilaudid Injection - IVPUSH 08/11/16 15:23 [id number] PRN PAIN Piperacillin Sod/Tazobactam Sod 50 mls @ 100 mls/hr 08/08/16 18:00 08/09/16 02: 52 Zosyn 3.375gm Ivpb (Pre-Docked) IVPB 100 mls/hr Q8H-IV RONALDO Administration Protocol Vancomycin HCl 250 mls @ 200 mls/hr 08/08/16 16:00 08/09/16 03:54 Vancomycin (Pre-Docked) IVPB 200 mls/hr BID@0400,1600 RONALDO Administration Vancomycin HCl 500 mg/ 100 mls @ 100 mls/hr 08/09/16 07:24 Dextrose IVPB 08/09/16 08:23 ONCE ONE Insulin Aspart 1 vial 08/08/16 16:30 08/09/16 07:18 Novolog Vial Sliding Scale - SQ 2 units ACHS RONALDO Administration Protocol Lisinopril 20 mg 08/09/16 10:00 Prinivil PO DAILY RONALDO Metoprolol Tartrate 50 mg 08/08/16 22:00 08/08/16 22:35 Lopressor - PO 50 mg BID RONALDO Administration Ondansetron HCl 4 mg 08/08/16 15:31 Zofran Injection IVPB Q6H PRN NAUSEA Oxycodone HCl 5 mg 08/08/16 15:09 08/08/16 18:30 Roxicodone - PO 5 mg Q4H PRN Administration PAIN LEVEL 1-5 CBC, BMP 08/09/16 06:35 08/08/16 07:10 Microbiology 08/05/16 21:50 Urine - Urine Clean Catch Urine Culture - Final NO GROWTH OBTAINED 08/05/16 18:39 Blood - Peripheral Venous Blood Culture - Preliminary NO GROWTH OBTAINED AFTER 72 HOURS, INCUBATION TO CONTINUE FOR 2 DAYS. Laboratory Tests 08/08/16 18:00 Vancomycin Trough 7.929 ASSESSMENT/PLAN: 65 year old male with pmh Diabetes, CAD s/p stent (03/2016), HTN, HPLD present to the ED with complaint right great toe ulcer/infections/cellulitis. Pt was found to have osteomylitis on MRI of the right digit. Pt to undergoe amputation of right great toe by Dr Thrasher this afternoon 08/08/2016 R great toe amputation, 1st metatarsal head resection rt Right Great toe diabetic ulcer/cellulitis/osteomyelitis PT is on VAncomycin and zosyn by ID VAnco through 7.9 One time dose of Vancomycin 500mg IV once Plus Vanco dose adjustment by ID F/u Bone/tissue culture for tailoring antibiotics coverage pain control Diabetes hbg A1c 10.9 BGM ACHS novolog coverage sliding scale start levemir 5 unit sq BART (resolved) Cr 1.2 BUN 12 CAD s/p stent Resume ASA and Plavix today if ok with surgery HPLD Continue statin FEN Fluid: none electrolytes: no abnormalities Nutrition: Resume diabetic DVT prophylaxis: heparin sq, will resume today if ok with surgery Disposition:pending amputation with tissue/bone culture for long antibiotic coverage Visit type - Emergency Visit Emergency Visit: Yes ED Registration Date: 08/05/16 Care time: The patient presented to the Emergency Department on the above date and was hospitalized for further evaluation of their emergent condition. - New Patient This patient is new to me today: Yes - Critical Care Critical Care patient: No - Discharge Referral Referred to [facility] Med P.C.: No
[2016-08-09] MEDS ORDERED: INSULIN DETEMIR 100 UNITS/ML MDV SQ ONE ×2 (07:32→10:50)
[2016-08-09 07:45] LABS: MCH 32.5 pg (25.7-33.7); MCHC 33.6 g/dl (32.0-35.9); MEAN CELL VOLUME 96.9 fl (80-96); MEAN PLT VOLUME 9.4 fl (7.5-11.1); PLATELET COUNT 327 K/MM3 (134-434); RDW 13.5 % (11.9-15.9); WHITE BLOOD COUNT 10.3 K/mm3 (4.0-10.0)
[2016-08-09] MEDS ORDERED: VANCOMYCIN 500 MG in DEXTROSE 5%-WATER - 100 ML IVPB ONE (09:00)
[2016-08-09] MEDS: LISINOPRIL 20 MG TABLET (FP) PO SCH (09:41)
[2016-08-09] MEDS: METOPROLOL TARTRATE 50 MG TABLET (FP) PO SCH ×2 (09:41→22:05)
[2016-08-09] MEDS ORDERED: INSULIN (NOVOLOG) ASPART 100 UNITS/ML 10ML VIAL ONE (10:50)
--- NOTE | 2016-08-09 13:59 | PN ---
Progress Note (short form) - Note Progress Note: Podiatry: Seen and evaluated at bedside, NAD. Pain well controlled, denies F/V/N/C/SOB/ CP. S/p R great toe amputation, partial 1st ray resection for severe DM infection. Afebrile, VSS. KIRAN: R foot: dressing C/D/I, no active bleeding, no bandage strikethrough. Sutures well coapted at amputation site, packing in place. Small central aspect of surgical site packed open. Surrounding erythema improving. No purulence, no fluctuance, no streaking cellulitis, no soft tissue crepitus, no signs of acute infection. Minimal tenderness to palpation. WBC: 10.3 OR Wound Cx: Beta Strep B, pending organism OR Proximal Bone Cx: no growth x 24 hrs Imp: 65 year old DM M s/p R great toe amputation for severe DM infection POD # 1 1. Packing removed, DSD applied to R foot 2. F/u OR cultures 3. IV abx per ID 4. Will follow Brennan Thrasher DPM
--- NOTE | 2016-08-09 14:52 | PN ---
Teaching Attending Note Name of Resident: Toribio Lorenz ATTENDING PHYSICIAN STATEMENT I saw and evaluated the patient. I reviewed the resident's note and discussed the case with the resident. I agree with the resident's findings and plan as documented. SUBJECTIVE: OBJECTIVE: Vital Signs Period Temp Pulse Resp BP Sys/Owusu Pulse Ox Last 24 Hr 97.1 F-99.6 F 60-87 16-20 94-141/54-87 95-100 ASSESSMENT AND PLAN: 65yo m with PMH CAD s/p stent, DM, HTN and dyslipidemia presented to the ER and was admitted for further evaluation of their emergent condition 1. R toe diabetic ulcer-MRI confirmed OM of prox/distal 1st digit. abscess drained bedside. NPO for amputation today. on vanco/zosyn day 2. f/u bone cx. podiatry/vascular/ID on board. pain control. hold asa/plavix for surgery 2. DM- A1c 10.9. improved. will start levemir 5 units QHS. cont iss, minimal coverage received past 24H. ISS, BGM. diabetic teaching 3. BART- unknown baseline. improved. avoid nephrotoxic 4. CAD s/p stent- no signs of ACS. cont metoprolol/lisinoptil. hold asa/plavix for pending surgery 5. dyslipidemia- cont statin 6. DVT ppx- hep sq.on hold for pending surgery will re-start tomorrow
[2016-08-09] MEDS: ATORVASTATIN CA 10 MG TABLET (FP) PO SCH (22:05)
[2016-08-10] MEDS: PIPERACILLIN/TAZOB 3.375 GM 50 ML IVPB SCH ×3 (02:08→18:20)
[2016-08-10] MEDS: oxyCODONE HCL 5 MG TABLET PO PRN (02:51)
[2016-08-10] MEDS: VANCOMYCIN 1 GRAM (PRE-DOCKED) 250 ML IVPB SCH ×4 (03:31→18:45)
[2016-08-10] MEDS: INSULIN SLIDING SCALE (NOVOLOG) 1 VIAL SQ SCH ×4 (06:51→21:37)
[2016-08-10] MEDS: HEPARIN NA (PORCINE) 5,000 UNITS/ML 1ML VIAL SQ SCH ×3 (06:51→21:36)
[2016-08-10] MEDS ORDERED: INSULIN DETEMIR 100 UNITS/ML MDV SQ ONE (08:13)
[2016-08-10] MEDS: LISINOPRIL 20 MG TABLET (FP) PO SCH (10:10)
[2016-08-10] MEDS: METOPROLOL TARTRATE 50 MG TABLET (FP) PO SCH ×2 (10:10→21:36)
--- NOTE | 2016-08-10 10:14 | PN ---
Progress Note (short form) - Note Progress Note: Podiatry: Seen and evaluated at bedside, NAD. Pain controlled, denies F/V/N/C/SOB/CP. S/ p R great toe amputation for severe DM foot infection, osteomyelitis. Afebrile , VSS. KIRAN: R foot: dressing C/D/I, no active bleeding, no strikethrough. Sutures well coapted, no dehiscence. Small central area open, draining only bloody drainage. No purulence, no fluctuance, erythema improving, no ascending cellulitis, no active signs of infection. OR wound cx: beta strep, strep viridans OR proximal bone cx: negative Imp: 65 year old DM M s/p R great toe amputation for severe DM foot infection, osteomyelitis 1. C/w Abx per ID 2. DSD R foot 3. Partial WB R foot with surgical shoe 4. Glycemic control 5. Infection resolving well, upon discharge will f/u with me in [facility] on 08/16/16 Brennan Thrasher DPM
--- NOTE | 2016-08-10 12:57 | PN ---
Progress Note, Physician History of Present Illness: No c/o foot pain Ambulatory No fever/ chills Tolerating antibiotics - Current Medication List Current Medications: Active Medications Atorvastatin Calcium (Lipitor -) 10 mg PO HS [facility] Last Admin: 08/09/16 22:05 Dose: 10 mg Fentanyl (Sublimaze Injection -) 25 mcg IVPUSH [id number] PRN PRN Reason: PAIN Stop: 08/11/16 15:23 Fentanyl (Sublimaze Injection -) 50 mcg IVPUSH [id number] PRN PRN Reason: PAIN Stop: 08/11/16 15:23 Heparin Sodium (Porcine) (Heparin -) 5,000 unit SQ TID [facility] Last Admin: 08/10/16 06:51 Dose: 5,000 unit Hydromorphone HCl (Dilaudid Injection -) 0.5 mg IVPUSH [id number] PRN PRN Reason: PAIN Stop: 08/11/16 15:23 Piperacillin Sod/Tazobactam Sod (Zosyn 3.375gm Ivpb (Pre-Docked)) 50 mls @ 100 mls/hr IVPB Q8H-IV RONALDO PRN Reason: Protocol Last Admin: 08/10/16 10:10 Dose: 100 mls/hr Vancomycin HCl (Vancomycin (Pre-Docked)) 250 mls @ 200 mls/hr IVPB BID@0400, 1600 [facility] Last Admin: 08/10/16 03:31 Dose: 200 mls/hr Insulin Aspart (Novolog Vial Sliding Scale -) 1 vial SQ ACHS RONALDO PRN Reason: Protocol Last Admin: 08/10/16 12:03 Dose: 2 units Lisinopril (Prinivil) 20 mg PO DAILY [facility] Last Admin: 08/10/16 10:10 Dose: 20 mg Metoprolol Tartrate (Lopressor -) 50 mg PO BID [facility] Last Admin: 08/10/16 10:10 Dose: 50 mg Ondansetron HCl (Zofran Injection) 4 mg IVPB Q6H PRN PRN Reason: NAUSEA Oxycodone HCl (Roxicodone -) 5 mg PO Q4H PRN PRN Reason: PAIN LEVEL 1-5 Last Admin: 08/10/16 02:51 Dose: 5 mg - Objective Vital Signs: Vital Signs Temperature 97.6 F 08/10/16 06:00 Pulse Rate 76 08/10/16 06:00 Respiratory Rate 20 08/10/16 06:00 Blood Pressure 136/80 08/10/16 06:00 O2 Sat by Pulse Oximetry (%) 95 08/09/16 21:00 Constitutional: Yes: No Distress Eyes: Yes: Conjunctiva Clear Cardiovascular: Yes: Regular Rate and Rhythm, S1, S2 Respiratory: Yes: CTA Bilaterally Gastrointestinal: Yes: Normal Bowel Sounds, Soft Extremities: Yes: Other (S/P amputation L great toe Sutures in place No erythema / drainage) Labs: CBC, BMP 08/09/16 06:35 08/08/16 07:10 INR, PTT INR 1.14 (0.82-1.09) 08/05/16 18:39 Assessment/Plan S/P amputation L great toe Cellulitis L foot-resolved Check surgical path- if bone resection margins clear, substitute Augmentin 875mg po bid x 7d
--- NOTE | 2016-08-10 14:42 | PN ---
Physical Exam: SUBJECTIVE: Patient seen and examined Pt is feeling well no pain, no s/s of acute distress No fever or chills No n/v OBJECTIVE: Vital Signs Period Temp Pulse Resp BP Sys/Owusu Pulse Ox Last 24 Hr 97.6 F-98.7 F 69-82 18-20 123-136/55-80 95 GENERAL: The patient is awake, alert, and fully oriented, in no acute distress. HEAD: Normal with no signs of trauma. NECK: Trachea midline, full range of motion, supple. LUNGS: Breath sounds equal, clear to auscultation bilaterally, no wheezes, no crackles, no accessory muscle use. HEART: Regular rate and rhythm, S1, S2 without murmur, rub or gallop. ABDOMEN: Soft, nontender, nondistended, normoactive bowel sounds, no guarding, no rebound, no hepatosplenomegaly, no masses. EXTREMITIES: 2+ pulses, warm, well-perfused, no edema. S/p amputation of right great toe. Right covered with gauze dressing, clean dry and intact, no swelling , redness and tendernness appreciated. NEUROLOGICAL: . Normal speech, gait not observed. PSYCH: Normal mood, normal affect. SKIN: Warm, dry, normal turgor, no rashes or lesions noted. Laboratory Results - last 24 hr 08/09/16 08/09/16 08/10/16 16:31 21:05 06:27 POC Glucometer 181 218 175 08/10/16 12:01 POC Glucometer 178 Active Medications Generic Name Dose Route Start Last Admin Trade Name Freq PRN Reason Stop Dose Admin Atorvastatin Calcium 10 mg 08/08/16 22:00 08/09/16 22:05 Lipitor - PO 10 mg HS RONALDO Administration Fentanyl 25 mcg 08/08/16 15:22 Sublimaze Injection - IVPUSH 08/11/16 15:23 [id number] PRN PAIN Fentanyl 50 mcg 08/08/16 15:22 Sublimaze Injection - IVPUSH 08/11/16 15:23 [id number] PRN PAIN Heparin Sodium (Porcine) 5,000 unit 08/08/16 22:00 08/10/16 06:51 Heparin - SQ 5,000 unit TID RONALDO Administration Hydromorphone HCl 0.5 mg 08/08/16 15:22 Dilaudid Injection - IVPUSH 08/11/16 15:23 [id number] PRN PAIN Piperacillin Sod/Tazobactam Sod 50 mls @ 100 mls/hr 08/08/16 18:00 08/10/16 10: 10 Zosyn 3.375gm Ivpb (Pre-Docked) IVPB 100 mls/hr Q8H-IV RONALDO Administration Protocol Vancomycin HCl 250 mls @ 200 mls/hr 08/08/16 16:00 08/10/16 03:31 Vancomycin (Pre-Docked) IVPB 200 mls/hr BID@0400,1600 RONALDO Administration Insulin Aspart 1 vial 08/08/16 16:30 08/10/16 12:03 Novolog Vial Sliding Scale - SQ 2 units ACHS RONALDO Administration Protocol Lisinopril 20 mg 08/09/16 10:00 08/10/16 10:10 Prinivil PO 20 mg DAILY RONALDO Administration Metoprolol Tartrate 50 mg 08/08/16 22:00 08/10/16 10:10 Lopressor - PO 50 mg BID RONALDO Administration Ondansetron HCl 4 mg 08/08/16 15:31 Zofran Injection IVPB Q6H PRN NAUSEA Oxycodone HCl 5 mg 08/08/16 15:09 08/10/16 02:51 Roxicodone - PO 5 mg Q4H PRN Administration PAIN LEVEL 1-5 CBC, BMP 08/09/16 06:35 08/08/16 07:10 ASSESSMENT/PLAN: 65 year old male with pmh Diabetes, CAD s/p stent (03/2016), HTN, HPLD present to the ED with complaint right great toe ulcer/infections/cellulitis. Pt was found to have osteomylitis on MRI of the right digit. Pt to undergoe amputation of right great toe by Dr Thrasher this afternoon 08/08/2016 R great toe amputation, 1st metatarsal head resection rt Right Great toe diabetic ulcer/cellulitis/osteomyelitis PT is on VAncomycin and zosyn by ID Will check vanco though F/u Bone/tissue culture for tailoring antibiotics coverage Bone pathology pending pain control Diabetes hbg A1c 10.9 BGM ACHS novolog coverage sliding scale Levemir increased to 8 unit sq daily BART (resolved) Cr 1.2 BUN 12 CAD s/p stent on ASA and Plavix HPLD Continue statin FEN Fluid: none electrolytes: no abnormalities Nutrition: Resume diabetic DVT prophylaxis: heparin sq Disposition: Awaiting pathology report. Will discharge pt on Augmentin for 7 days if margins are clear Visit type - Emergency Visit Emergency Visit: Yes ED Registration Date: 08/05/16 Care time: The patient presented to the Emergency Department on the above date and was hospitalized for further evaluation of their emergent condition. - New Patient This patient is new to me today: Yes - Critical Care Critical Care patient: No - Discharge Referral Referred to [facility] Med P.C.: No
--- NOTE | 2016-08-10 15:35 | PN ---
Teaching Attending Note Name of Resident: Toribio Lorenz ATTENDING PHYSICIAN STATEMENT I saw and evaluated the patient. I reviewed the resident's note and discussed the case with the resident. I agree with the resident's findings and plan as documented. SUBJECTIVE: OBJECTIVE: Vital Signs Period Temp Pulse Resp BP Sys/Owusu Pulse Ox Last 24 Hr 97.6 F-98.7 F 69-82 18-20 123-136/55-80 95 ASSESSMENT AND PLAN:
[2016-08-10] MEDS: ATORVASTATIN CA 10 MG TABLET (FP) PO SCH (21:36)
[2016-08-11] MEDS: PIPERACILLIN/TAZOB 3.375 GM 50 ML IVPB SCH ×2 (01:51→10:58)
[2016-08-11] MEDS: VANCOMYCIN 1 GRAM (PRE-DOCKED) 250 ML IVPB SCH (04:01)
[2016-08-11] MEDS: HEPARIN NA (PORCINE) 5,000 UNITS/ML 1ML VIAL SQ SCH ×2 (06:42→13:12)
[2016-08-11] MEDS: INSULIN SLIDING SCALE (NOVOLOG) 1 VIAL SQ SCH ×2 (06:43→12:09)
[2016-08-11] MEDS ORDERED: INSULIN (NOVOLOG) ASPART 100 UNITS/ML 10ML VIAL ONE ×2 (06:53→12:08)
[2016-08-11] MEDS ORDERED: INSULIN DETEMIR 100 UNITS/ML MDV SQ SCH (07:00)
--- NOTE | 2016-08-11 08:25 | DS ---
Physical Exam: SUBJECTIVE: Patient seen and examined Patient is awake, alert and oriented no s/s of distress Denies pain no fever or chills OBJECTIVE: Vital Signs Period Temp Pulse Resp BP Sys/Owusu Pulse Ox Last 24 Hr 98.6 F-99.0 F 60-82 18-22 123-149/61-67 95-96 PHYSICAL EXAM GENERAL: The patient is awake, alert, and fully oriented, in no acute distress. HEAD: Normal with no signs of trauma. NECK: Trachea midline, full range of motion, supple. LUNGS: Breath sounds equal, clear to auscultation bilaterally, no wheezes, no crackles, no accessory muscle use. HEART: Regular rate and rhythm, S1, S2 without murmur, rub or gallop. ABDOMEN: Soft, nontender, nondistended, normoactive bowel sounds, no guarding, no rebound, no hepatosplenomegaly, no masses. EXTREMITIES: 2+ pulses, warm, well-perfused, no edema. S/p amputation of right great toe. Right covered with gauze dressing, clean dry and intact, no swelling , redness and tenderness appreciated. NEUROLOGICAL: . Normal speech, gait not observed. PSYCH: Normal mood, normal affect. SKIN: Warm, dry, normal turgor, no rashes or lesions noted. LABS Laboratory Results - last 24 hr 08/10/16 08/10/16 08/10/16 12:01 16:00 16:25 POC Glucometer 178 223 Vancomycin Trough 15.339 H* D 08/10/16 08/11/16 21:02 05:37 POC Glucometer 249 195 Vancomycin Trough CBC, BMP 08/09/16 06:35 08/08/16 07:10 Microbiology 08/08/16 15:00 Tissue-Other Gram Stain - Final 08/08/16 15:00 Tissue-Other Anaerobic Culture - Final NO GROWTH OF AEROBIC ORGANISMS AFTER 48 HOURS INCUBATION NO ANAEROBES WERE ISOLATED 08/08/16 15:00 Foot - Right Dorsum Gram Stain - Final 08/08/16 15:00 Foot - Right Dorsum Wound Culture - Final Strep Agalactiae Group B Streptococcus Viridans 08/05/16 21:50 Urine - Urine Clean Catch Urine Culture - Final NO GROWTH OBTAINED 08/05/16 18:39 Blood - Peripheral Venous Blood Culture - Final NO GROWTH AFTER 5 DAYS INCUBATION 08/05/16 18:39 Blood - Peripheral Venous Blood Culture - Preliminary NO GROWTH OBTAINED AFTER 96 HOURS, INCUBATION TO CONTINUE FOR 1 DAYS. Laboratory Tests 08/10/16 16:00 Vancomycin Trough 15.339 H* D HOSPITAL COURSE: Date of Admission:08/05/16 65 year old male that presents to the ED sent in by vascular surgeon Dr. Faith for right first toe infection. Patient reported about 1 week ago, he noticed a blister along the second right digit that extended to his first toe. Reports that the symptoms worsened last 2 days and now extending to the dorsum the right foot. He reports foul smell from the wound on the right great toe as well as numbness, erythema and swelling.He denies fever or chills. ER course was notable for: (1) Vanco/Zosyn 65 year old male with pmh Diabetes, CAD s/p stent (03/2016), HTN, HPLD present to the ED with complaint right great toe ulcer/infections/cellulitis. Pt was found to have osteomyelitis on MRI of the right digit. Was Started on Vancomycin and Zosyn in The ED which was continued by ID. Pt to underwent Right great toe amputation, 1st metatarsal head resection by Dr Thrasher this afternoon 08/08/2016. Vanco and Zosyn were continued pending culture and pathology report. Patient was discharged on Augmentin 875/125mg BID for 7 days. Patient is o follow up with Dr Thrasher at the [facility] at [facility]. Pt is diabetic and came with a Hbg A1c 10.9. He was placed on BGM ACHS, novolog coverage sliding scale, Levemir. Patient will be discharged on Novolog sliding scale and Levemir 8 Units BID SQ. Pt had BART which has resolved with IV fluid. Pt has a h/o CAD s/p stent, he is on ASA and Plavix. Pt has HPLD, he is on Statin. Date of Discharge: 08/11/16 Minutes to complete discharge: 40 Discharge Summary Reason For Visit: CELLULITIS Current Active Problems DM (diabetes mellitus), type 2, uncontrolled (Acute) Osteomyelitis (Acute) Status post amputation of right great toe (Acute) Condition: Stable - Instructions Diet, Activity, Other Instructions: Discharge Home resume Home activity Diabetic diet Resume home medications Follow up with Dr Erazo or Dr Guo within 1 week Follow up with Dr Thrasher in [facility] on Monday, Follow up with your primary care physician within one week, Dr Canales You need to check your blood sugar before each meal and before you sleep at night. You will need to Keep a log of your blood sugar and bring it to your primary care physician. He/She may have to make some changes to your insulin regimen. Novolog Insulin Sliding scale Blood Sugar 150 or less, No insulin 151-200, give 2 units 201-250, 4 units 251-300, 6 units 301-350, 8 units 351-400, 10 units Above 400, 12 units, call Primary care physician Referrals: Doug Thrasher MD [Staff Physician] - Tim Canales MD [Staff Physician] - More Erazo MD [Staff Physician] - Disposition: HOME - Home Medications Comprehensive Discharge Medication List: Ambulatory Orders ASA - 81 mg PO DAILY 08/05/16 Atorvastatin Ca [Lipitor] 10 mg PO HS 08/05/16 Enalapril Maleate [Vasotec] 20 mg PO DAILY 08/05/16 Metoprolol Tartrate 75 mg PO BID 08/05/16 Insulin Aspart [Novolog Flexpen] 100 unit SQ ACHS #1 insuln.pen 08/11/16 This patient is new to me today: Yes Date on this admission: 08/11/16 Emergency Visit: Yes ED Registration Date: 08/05/16 Care time: The patient presented to the Emergency Department on the above date and was hospitalized for further evaluation of their emergent condition. Critical Care patient: No - Discharge Referral Referred to [facility] Med P.C.: No
--- NOTE | 2016-08-11 08:48 | PN ---
Progress Note (short form) - Note Progress Note: Podiatry: Seen and evaluated at bedside, NAD. Pain controlled, denies F/V/N/C/SOB/CP. S/ p R great toe amputation for severe DM infection. Afebrile, VSS. KIRAN: R foot: dressing C/D/I, no active bleeding, no strikethrough. Sutures well coapted with central aspect open, draining only sanguinous drainage, erythema resolved, no purulence, no fluctuance, no ascending cellulitis, no signs of active infection. Minimal tenderness to palpation. OR Bone Cx: no growth x 48 hrs Imp: 65 year old DM M s/p R great toe amputation for severe DM infection 1. PO augmentin per ID. Proximal bone culture negative, pathology pending. I am confident all infected bone subsequently removed. I will f/u bone path in the next few days. 2. DSD applied to R foot. Can keep dressing C/D/I. 3. Partial WB R heel with surgical shoe. 4. Glycemic control. 5. Upon discharge, will f/u with me in [facility] on 08/16/16. No further intervention at this time. Brennan Thrasher DPM
[2016-08-11] MEDS: METOPROLOL TARTRATE 50 MG TABLET (FP) PO SCH (10:58)
[2016-08-11] MEDS: LISINOPRIL 20 MG TABLET (FP) PO SCH (10:58)
--- NOTE | 2016-08-11 12:20 | PATH ---
Surgical Pathology Report Patient Name: HERON MCKNIGHT [facility]. Rec. #: [id number] /Age/Gender: 1950 (Age: 65) / M Account: [id number] Location: [address] [place] [address]/[facility] Taken: 08/08/2016 Received: 08/09/2016 Reported: 08/11/2016 Physicians: FREDRICK Lynne M.D. Specimen(s) Received A: AMPUTATED RIGHT GREAT TOE B: PROXIMAL BONE RIGHT FOOT Clinical History Osteomyelitis with diabetic foot infection Final Diagnosis A. GREAT TOE, RIGHT, AMPUTATION: ULCERATED AND NECROTIC SKIN AND UNDERLYING SOFT TISSUE WITH ACUTE NECROTIZING INFLAMMATION, FIBROSIS AND FOCI OF GANGRENOUS NECROSIS. UNDERLYING BONE WITH ACUTE OSTEOMYELITIS. ACUTE NECROTIZING INFLAMMATION AND NECROSIS EXTEND TO SKIN AND SOFT TISSUE AT THE MARGIN. BONE AT RESECTION MARGIN APPEARS VIABLE. B. PROXIMAL BONE, RIGHT FOOT, EXCISION: VIABLE BONE. ATTACHED SOFT TISSUE WITH ACUTE NECROTIZING INFLAMMATION Electronically Signed Fox Beaulieu M.D. Gross Description A. Received in formalin labeled "amputated right great toe" is a 7.0 x 3.8 x 3.6 cm toe amputation specimen. The epidermal surface displays a 2.8 x 2.6 cm ulcerated lesion on the medial aspect of the toe, at ~0.3 cm from the skin and soft tissue margin of resection. The lesion appears to involve the underlying bone. Bearing Maker sections are submitted in 3 cassettes as follows: 1-lesion with underlying bone, following decalcification; 2-bone margin, following decalcification; 3-skin and soft tissue margin. B. Received in formalin labeled "proximal bone right foot" is a 2.8 x 2.3 x 2.3 cm portion of bone with smooth articular cartilage at one surface. The opposing surface displays smooth trabecular bone, consistent with a true bone margin. The bone margin is submitted in one cassette, following decalcification. 08/10/201608/10/2016
[2016-08-11 15:40] VITALS: BP 128/58; PULSE 64; TEMP 98.7
--- NOTE | 2016-08-11 17:27 | PN ---
Teaching Attending Note Name of Resident: Toribio Lorenz ATTENDING PHYSICIAN STATEMENT I saw and evaluated the patient. I reviewed the resident's note and discussed the case with the resident. I agree with the resident's findings and plan as documented. SUBJECTIVE: OBJECTIVE: Vital Signs Period Temp Pulse Resp BP Sys/Owusu Pulse Ox Last 24 Hr 98.6 F-99.0 F 60-80 18-22 128-149/58-70 96-96 ASSESSMENT AND PLAN:
== END 2016-08-11 16:19 | disposition home or self-care (01) | DRG 617 ==
LOC: JER 17:19 → JERBED 20:15 → J5S 08-06 03:31
PROVIDERS: ADMIT Internal Medicine; ATTEND Internal Medicine
PROC: 0Y9M0ZZ Drainage of Right Foot, Open Approach (ICD-10-PCS; principal; 2016-08-07)
PROC: 0Y6M0Z4 Detachment at Right Foot, Complete 1st Ray, Open Approach (ICD-10-PCS; 2016-08-08)
PROC: 0QTN0ZZ Resection of Right Metatarsal, Open Approach (ICD-10-PCS; 2016-08-08)
PROC: 0JBQ0ZZ Excision of Right Foot Subcutaneous Tissue and Fascia, Open Approach (ICD-10-PCS; 2016-08-08)
DX: E11.621 Type 2 diabetes mellitus with foot ulcer (principal); L03.115 Cellulitis of right lower limb; M86.171 Other acute osteomyelitis, right ankle and foot; I25.10 Atherosclerotic heart disease of native coronary artery without angina pectoris; E78.5 Hyperlipidemia, unspecified; N17.9 Acute kidney failure, unspecified; E11.65 Type 2 diabetes mellitus with hyperglycemia; Z95.5 Presence of coronary angioplasty implant and graft
CPT/HCPCS: 36415; 71010-TC; 73630-TC-RT; 73722-TC; 80048; 80053; 81003; 83036; 83605; 85025; 85027; 85610; 85651; 85730; 86140; 86850; 86900; 86901; 87040; 87070; 87075; 87076; 87077; 87086; 87186; 87205; 88304-TC; 88305-TC; 88311-TC; 93005; 93010; 94760; 99283-25; A9576; G0480; J1644

== ENCOUNTER 2016-08-16 14:26 | Emergency (ER) | payer OTHER ==
[2016-08-16 14:40] VITALS: BMI 30.9
--- NOTE | 2016-08-16 15:15 | PDOC ---
History of Present Illness - General Chief Complaint: Syncope/Near Syncope Stated Complaint: SYNCOPE SENT BY PCP Time Seen by Provider: 08/16/16 14:41 Past History - Past Medical History Allergies/Adverse Reactions: Allergies Allergy/AdvReac Type Severity Reaction Status Date / Time No Known Allergies Allergy Verified 08/16/16 14:39 Home Medications: Ambulatory Orders Atorvastatin Ca [Lipitor] 10 mg PO HS 08/05/16 Enalapril Maleate [Vasotec] 20 mg PO DAILY 08/05/16 Metoprolol Tartrate 75 mg PO BID 08/05/16 Amoxicillin/Potassium Clav [Augmentin 875-125 Tablet] 1 each PO BID #14 tablet 08/11/16 Insulin (Levemir) [Levemir Flexpen -] 8 units SQ BID #1 pen 08/11/16 Aspirin [ASA -] 81 mg PO DAILY 08/16/16 Insulin Aspart [Novolog Flexpen] 0 unit SQ PRN PRN 08/16/16 Latanoprost 0.005% Eye Drops [Xalatan 0.005% Eye Drops -] 1 drop OU HS 08/16/16 Cardiac Disorders: Yes Diabetes: Yes HTN: Yes Hypercholesterolemia: Yes - Surgical History Appendectomy: Yes - Psycho/Social/Smoking Cessation Hx Suicidal Ideation: No Smoking History: Never smoked Information on smoking cessation initiated: No Hx Alcohol Use: No Drug/Substance Use Hx: No Substance Use Type: None *Physical Exam - Vital Signs Last Vital Signs Temp Pulse Resp BP Pulse Ox 97.4 F L 64 18 143/73 100 08/16/16 14:37 08/16/16 14:37 08/16/16 14:37 08/16/16 14:37 08/16/16 14:47
--- NOTE | 2016-08-16 15:16 | PDOC ---
History of Present Illness - General Chief Complaint: Syncope/Near Syncope Stated Complaint: SYNCOPE SENT BY PCP Time Seen by Provider: 08/16/16 14:41 History Source: Patient, Family Exam Limitations: No Limitations - History of Present Illness Initial Comments: 65 yo M with h/o DM, CAD s/p 3 stents, HTN, HLD, osteomyelitis s/p R big toe amputation sent by his PMD due to syncope. Patient was in his PMD's office, all of sudden he felt woozy and passed out for few minutes but regain consciousness spontaneously without any confusion, jerky movement, or urinary incontinence. However, he passed out again for similar duration shortly and regained consciousness spontaneously. His BP at that time was 110/60 and 140/70 on admission. He denies severe dehydration, chest pain, sob, fever, chills. Past History - Travel Traveled outside of the country in the last 30 days: No Close contact w/someone who was outside of country & ill: No - Past Medical History Allergies/Adverse Reactions: Allergies Allergy/AdvReac Type Severity Reaction Status Date / Time No Known Allergies Allergy Verified 08/16/16 14:39 Home Medications: Ambulatory Orders Atorvastatin Ca [Lipitor] 10 mg PO HS 08/05/16 Enalapril Maleate [Vasotec] 20 mg PO DAILY 08/05/16 Metoprolol Tartrate 75 mg PO BID 08/05/16 Amoxicillin/Potassium Clav [Augmentin 875-125 Tablet] 1 each PO BID #14 tablet 08/11/16 Insulin (Levemir) [Levemir Flexpen -] 8 units SQ BID #1 pen 08/11/16 Aspirin [ASA -] 81 mg PO DAILY 08/16/16 Insulin Aspart [Novolog Flexpen] 0 unit SQ PRN PRN 08/16/16 Latanoprost 0.005% Eye Drops [Xalatan 0.005% Eye Drops -] 1 drop OU HS 08/16/16 Cardiac Disorders: Yes Diabetes: Yes HTN: Yes Hypercholesterolemia: Yes - Surgical History Appendectomy: Yes - Psycho/Social/Smoking Cessation Hx Suicidal Ideation: No Smoking History: Never smoked Information on smoking cessation initiated: No Hx Alcohol Use: No Drug/Substance Use Hx: No Substance Use Type: None Review of Systems - Review of Systems Constitutional: No: Chills, Fever HEENTM: No: Throat Pain, Throat Swelling Respiratory: No: Cough, Shortness of Breath Cardiac (ROS): No: Chest Pain ABD/GI: No: Nausea, Vomiting : No: Dysuria Neurological: No: Headache, Numbness, Seizure, Tingling, Weakness *Physical Exam - Vital Signs Last Vital Signs Temp Pulse Resp BP Pulse Ox 97.4 F L 68 18 136/66 99 08/16/16 14:37 08/16/16 16:58 08/16/16 16:58 08/16/16 16:58 08/16/16 16:58 - Physical Exam General Appearance: No: Apparent Distress HEENT: positive: CLAUDIO Neck: positive: Trachea midline, Supple Respiratory/Chest: positive: Lungs Clear, Normal Breath Sounds Cardiovascular: positive: Regular Rhythm, Regular Rate, S1, S2. negative: Murmur, Systolic Murmur Gastrointestinal/Abdominal: positive: Normal Bowel Sounds, Flat. negative: Distended, Guarding, Rebound, Tenderness Extremity: negative: Swelling, Calf Tenderness Neurologic: positive: caption writer II-XII NML intact, Fully Oriented, Alert, Motor Strength 5/5. negative: Facial Droop, Numbness, Confused, Disoriented ED Treatment Course - LABORATORY CBC & Chemistry Diagram: 08/16/16 15:30 08/16/16 16:39 - ADDITIONAL ORDERS Additional order review: Laboratory Results 08/16/16 08/16/16 08/16/16 16:39 16:39 15:30 INR Sodium 139 Cancelled Potassium 3.8 Cancelled Chloride 100 Cancelled Carbon Dioxide 28 Cancelled Anion Gap 11 Cancelled BUN 17 D Cancelled Creatinine 1.5 H D Cancelled Creat Clearance w eGFR 46.97 Cancelled Random Glucose 133 H D Cancelled Calcium 9.3 Cancelled Total Bilirubin 0.3 D Cancelled AST 18 Cancelled ALT 14 D Cancelled Alkaline Phosphatase 78 Cancelled Creatine Kinase 32 L Cancelled Troponin I < 0.02 Cancelled Total Protein 6.2 L Cancelled Albumin 2.8 L Cancelled 08/16/16 15:30 INR 1.19 H Sodium Potassium Chloride Carbon Dioxide Anion Gap BUN Creatinine Creat Clearance w eGFR Random Glucose Calcium Total Bilirubin AST ALT Alkaline Phosphatase Creatine Kinase Troponin I Total Protein Albumin 08/16/16 15:30 RBC 3.53 L MCV 97.1 H MCHC 33.7 RDW 13.5 MPV 9.3 Neutrophils % 77.4 Lymphocytes % 9.7 D Monocytes % 7.9 Eosinophils % 4.2 Basophils % 0.8 Medical Decision Making - Medical Decision Making 08/16/16 15:43 Will obtain blood work, CXR, troponin, PT PTT. 08/16/16 17:53 Troponin is negative x 1, but patient refuses overnight telemetry observation and syncope workup. He signed out AMA after I explained the risks fully to him. 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 *DC/Admit/Observation/Transfer Diagnosis at time of Disposition: Syncope Qualifiers: Syncope type: unspecified Qualified Code(s): R55 - Syncope and collapse - Discharge Dispostion Disposition: AGAINST MEDICAL ADVICE Condition at time of disposition: Stable Admit: No
[2016-08-16 15:46] LABS: BASOPHIL 0.8 % (0-2.0); EOSINOPHIL 4.2 % (0-4.5); MCH 32.7 pg (25.7-33.7); MCHC 33.7 g/dl (32.0-35.9); MEAN CELL VOLUME 97.1 fl (80-96); MEAN PLT VOLUME 9.3 fl (7.5-11.1); NEUTROPHILS 77.4 % (42.8-82.8); PLATELET COUNT 375 K/MM3 (134-434); RDW 13.5 % (11.9-15.9); WHITE BLOOD COUNT 9.8 K/mm3 (4.0-10.0)
--- NOTE | 2016-08-16 15:56 | PDOC ---
Attending Attestation - Resident Resident Name: Rico Rojo - ED Attending Attestation I have performed the following: I have examined & evaluated the patient, The case was reviewed & discussed with the resident, I agree w/resident's findings & plan, Exceptions are as noted - HPI HPI: 65 yo M history CAD s/p stents x3, HTN, HL, osteomyelitis with R great toe amputation sent by PMD for syncope. He was at the office, having a blood draw, passed out. He states that he felt lightheaded and cold sweat prior to passing out, then passed out a second time. No cp, palpitations, SOB, headache, weakness , numbness. Currently denies any symptoms. - Physicial Exam PE: GENERAL: Awake, alert, and fully oriented, in no acute distress HEAD: No signs of trauma EYES: PERRLA, EOMI, sclera anicteric, conjunctiva clear ENT: Auricles normal inspection, hearing grossly normal, nares patent, oropharynx clear without exudates. Moist mucosa NECK: Normal ROM, supple, no lymphadenopathy, JVD, or masses LUNGS: Breath sounds equal, clear to auscultation bilaterally. No wheezes, and no crackles HEART: Regular rate and rhythm, normal S1 and S2, no murmurs, rubs or gallops ABDOMEN: Soft, nontender, normoactive bowel sounds. No guarding, no rebound. No masses EXTREMITIES: R great toe amputation. Remainder of extremities- normal range of motion, no edema. No clubbing or cyanosis. No cords, erythema, or tenderness NEUROLOGICAL: Cranial nerves II through XII grossly intact. Normal speech, normal gait SKIN: Warm, Dry, normal turgor, no rashes or lesions noted. - Medical Decision Making Patient with multiple cardiac risk factors presents s/p syncope x2. Symptoms may be due to fasting for bloodwork vs vasovagal. However, in light of risk factors, would recommend admission for cardiac workup. I discussed risks of leaving AMA. Patient agrees to stay for initial set of bloodwork, will discuss admission with . Will revisit the issue after labs return.
[2016-08-16 15:57] LABS: INR 1.19 (0.82-1.09); PROTHROMBIN TIME (PATIENT) 13.1 SEC (9.98-11.88)
[2016-08-16 18:29] VITALS: BP 126/73; PULSE 63; TEMP 98.2
--- NOTE | 2016-08-17 13:15 | EKG ---
Test Reason : Blood Pressure : / mmHG Vent. Rate : 061 BPM Atrial Rate : 061 BPM P-R Int : 180 ms QRS Dur : 076 ms QT Int : 438 ms P-R-T Axes : 033 005 055 degrees QTc Int : 440 ms SINUS RHYTHM WITH PREMATURE ATRIAL COMPLEXES WITH ABERRANT CONDUCTION CANNOT RULE OUT ANTERIOR INFARCT , AGE UNDETERMINED ABNORMAL ECG WHEN COMPARED WITH ECG OF 05-AUG-2016 18:56, ABERRANT CONDUCTION IS NOW PRESENT VENT. RATE HAS DECREASED BY 31 BPM MINIMAL CRITERIA FOR ANTERIOR INFARCT ARE NOW PRESENT Confirmed by MELISSA WANG, DELMI ([id number]) on 08/17/2016 1:14:50 PM Referred By: Confirmed By:DELMI TORRES MD
== END 2016-08-16 17:50 | disposition left against medical advice (07) ==
LOC: JER 14:26
DX: R55 Syncope and collapse (principal); E11.9 Type 2 diabetes mellitus without complications; I25.10 Atherosclerotic heart disease of native coronary artery without angina pectoris; E78.5 Hyperlipidemia, unspecified; Z79.4 Long term (current) use of insulin
CPT/HCPCS: 36415; 71010-TC; 80053; 82550; 84484; 85025; 85610; 93005; 93010; 99285-25; G0463-25